=== PATIENT | female | born 1955 | race Caucasian/White ===

== ENCOUNTER → 2016-12-15 | Outpatient (CLI) | payer OTHER | LOC: MMPC 11:11 | PROVIDERS: ATTEND Internal Medicine | DX: E11.40 Type 2 diabetes mellitus with diabetic neuropathy, unspecified (principal); M54.2 Cervicalgia; G47.33 Obstructive sleep apnea (adult) (pediatric); F41.8 Other specified anxiety disorders; I10 Essential (primary) hypertension; E66.9 Obesity, unspecified | CPT/HCPCS: 99213; G0463 ==

== ENCOUNTER → 2017-01-12 | Outpatient (CLI) | payer OTHER ==
[2017-01-12 11:15] LABS: HEMOGLOBIN A1C 6.15 % (4.2-6.0); MEAN BLOOD GLUCOSE (CALC) 118.795 mg/dL
[2017-01-12 11:20] LABS: BILIRUBIN,TOTAL 0.7 mg/dL (0.3-1.2); CALCIUM 9.8 mg/dL (8.7-10.7); CREATININE 1.1 mg/dL (0.50-1.20); POTASSIUM 4.4 meq/L (3.8-5.2); TOTAL PROTEIN 7.6 g/dL (6.1-8.0)
== END ==
LOC: LAB 10:44
PROVIDERS: ATTEND Internal Medicine
DX: E11.40 Type 2 diabetes mellitus with diabetic neuropathy, unspecified (principal); I12.9 Hypertensive chronic kidney disease with stage 1 through stage 4 chronic kidney disease, or unspecified chronic kidney disease; N18.2 Chronic kidney disease, stage 2 (mild); R94.5 Abnormal results of liver function studies
CPT/HCPCS: 36415; 80048; 80076; 83036

== ENCOUNTER → 2017-01-18 | Outpatient (CLI) | payer OTHER ==
[2017-01-18 10:40] LABS: HEMATOCRIT 38.3 % (37.0-47.0); HEMOGLOBIN 12.7 g/dL (12.0-16.0); MEAN CORPUSCULAR HEMOGLOBIN 28.9 PG (27-31); MEAN CORPUSCULAR HGB CONC 33.2 g/dL (33-37); MEAN PLATELET VOLUME 11.9 FL (7.4-12.2); RDW COEFFICIENT OF VARIATION 14.7 % (11.5-14.5); WHITE BLOOD COUNT 7.01 10^3/uL (4.8-10.8)
[2017-01-18 10:42] LABS: BILIRUBIN,URINE NEGATIVE (NEG); CLARITY,URINE CLEAR (CLEAR); GLUCOSE, URINE (UA) NEGATIVE (NEG); LEUKOCYTE ESTERASE ,URINE TRACE (NEG); NITRATE,URINE NEGATIVE (NEG); OCCULT BLOOD,URINE NEGATIVE (NEG); PH,URINE 6.5 (5.0-8.5); PROTEIN,URINE NEGATIVE (NEG); UROBILINOGEN,URINE 0.2 mg/dL (0.2)
[2017-01-18 11:02] LABS: URINE SAMPLE TYPE VOIDED SPECIMEN
[2017-01-18 11:03] LABS: SQUAMOUS EPITHELIAL CELL,UR FEW
[2017-01-18 11:09] LABS: BAND NEUTROPHILS % 0 % (0-10); BASOPHILS % (MANUAL) 1 % (0-1); EOSINOPHILS % (MANUAL) 4 % (0-8); LYMPHOCYTES % (MANUAL) 25 % (10-50); METAMYELOCYTES % 0 %; MONOCYTES % (MANUAL) 5 % (0-12); MYELOCYTES % 0 %; NEUTROPHILS % (MANUAL) 65 % (50-80); PLATELET MORPHOLOGY COMMENT NORMAL MORPHOLOGY (NORM); PROMYELOCYTES % 0 %
--- NOTE | 2017-01-18 11:31 | EKG ---
[address] [place] [id number] Measurements Intervals [place] Rate: 57 P: 25 AL: 171 QRS: 93 QRSD: 111 T: 51 QT: 437 QTc: 432 Interpretive Statements SINUS RHYTHM BORDERLINE RIGHT AXIS DEVIATION MODERATE INTRAVENTRICULAR CONDUCTION DELAY Compared to ECG 10/06/2016 09:38:54 Intraventricular conduction delay now present Electronically Signed On 01-18-17 16:04:38 MDT by Kody Wiggins [id number]
--- NOTE | 2017-01-21 10:07 | HOLTER ---
[facility] Interpretive Statements This is a 48 hour Holter study done for "syncope." An accompanying diary lists over 50 "events" of almost all activities without symptoms but there were two listings of "feeling funny" at 9:02 AM day 1 and "tightness in chest" at 12:39 PM day 1 when the rhythm was normal sinus at normal rates with no ST depression. While normal sinus rhythm was the predominate rhythm there were 2 episodes of what appears to be V-tach lasting from 25 to 30 seconds with rates over 100 BPM (146 being the fastest) and one episode of 12 beat V-tach at 3:06 PM during which there were no reported symptoms. The total count of ventricular ectopics was 425 out of 183,903 beats and only 287 were singlets. There were 517 possible atrial ectopics with 111 being couplets and 6 runs with the longest being [address] and QTc analyses were WNL. IMPRESSION: Abnormal 48 hour Holter study with episodes of V-tach poorly correlated with symptoms. Consider Cardiology review. Electronically Signed On 01-21-17 11:00:20 MDT by Alan Reyes MD [id number]
== END ==
LOC: MOB LAB 09:39
PROVIDERS: ATTEND Internal Medicine
DX: R55 Syncope and collapse (principal); I10 Essential (primary) hypertension; I45.89 Other specified conduction disorders
CPT/HCPCS: 36415; 81001; 85007; 93005; 93010; 93225; 93226; 93227

== ENCOUNTER 2017-03-11 09:30 | Emergency (ER) | payer OTHER ==
[2017-03-11] MEDS ORDERED: MECLIZINE 25 MG CHEWABLE TABLET PO ONE (10:02)
[2017-03-11] MEDS ORDERED: ONDANSETRON 4 MG/2 ML VIAL IVP ONE (10:02)
[2017-03-11] MEDS ORDERED: Sodium Chloride 0.9% 1,000 ML PRIMARY IV ONE (10:02)
[2017-03-11] MEDS ORDERED: LORazepam 2 MG/1 ML VIAL IVP ONE (10:04)
--- NOTE | 2017-03-11 10:14 | PDOC ---
Syncope/Near-Syncope HPI - General Chief Complaint: Syncope / Near-Syncope Stated Complaint: SYNCOPAL EPISODES x2 MONTHS/AGAIN THIS AM AT PT Date Seen by Provider: 03/11/17 Time Seen by Provider: 10:05 Source: POSITIVE: Patient, Spouse Exam Limitations: POSITIVE: No limitations Nurse's Notes Reviewed & Considered: Yes - History of Present Illness Initial Comments: Patient was brought to the emergency room from physical therapy after experiencing a syncopal episode versus seizure. Patient was in physical therapy and a hot towel had been draped over her neck and shoulders, the patient was stood up, and developed significant dizziness, odd affect, and shaking. Patient has had 2 months of intermittent syncopal episodes and dizziness that have no apparent Colles. These episodes have occurred when the patient is lying down, when she is standing at the sink washing dishes, and when she is up moving around. She was evaluated by cardiology here in [place], sent to [facility] where she was hospitalized and worked up by cardiology there. Workup included cardiac catheter which has been reported by the patient is normal. She has had no neurological workup of which I am aware of at this time. Patient has history of migraine headaches, no chest pain, no shortness of breath, no nausea vomiting or diarrhea, no fever or chills, but she does have hot flashes and sweats. Body Location Affected: REPORTS: Head Timing: REPORTS: Abrupt Duration: 1/2 hour Severity: Severe Quality: REPORTS: Other (Dizziness) Witnessed? (By Whom:): Yes (witnessed in physical therapy) Context: REPORTS: Sitting, Standing, Activity Symptoms Prior to Episode: REPORTS: None Character of Event(s): REPORTS: Became Unresponsive, Almost Passed Out, Confuse After Event Associated Symptoms: REPORTS: Lightheadedness, Dizziness Recently seen/treated/hospitalized: Yes Any Prior Injuries Related to Current Complaint?: No - Patient Home Medications Home Medications: Home Medications Oxygen (O2) 2 unit INH HS #2 unit 01/17/14 Amlodipine Besylate [Norvasc] 1 tab PO DAILY #90 tab 06/09/16 Atorvastatin Calcium [Lipitor] 1 tab PO DAILY #90 tab 06/09/16 Gabapentin 1 cap PO BID #60 cap 08/25/16 Hydrochlorothiazide 1 tab-cap PO DAILY #90 tab 09/22/16 Metformin HCl 2 tab-cap PO BID #360 tab 09/22/16 Omeprazole 1 tab-cap PO DAILY #90 cap 09/22/16 Losartan Potassium 1 tab PO QD #90 tab 10/12/16 Citalopram Hydrobromide [Citalopram Hbr] 1 tab PO DAILY #90 tab 12/15/16 Oxycodone HCl 1 cap PO Q4-6H PRN #30 cap 12/15/16 Pregabalin [Lyrica] 1 tab-cap PO BID #180 tab-cap 01/25/17 - Patient Allergies Allergies/Adverse Reactions: Allergies Allergy/AdvReac Type Severity Reaction Status Date / Time morphine AdvReac DYSPHORIA Verified 03/11/17 09:56 Past Medical History - heen HEENT History: Denies History Cardiovascular History: Hypertension, CAD Additional Cardiovasular History: PATIENT STATES HAS A "LARGE THICK HEART" Respiratory History: Shortness of Breath, Sleep Apnea, Home CPAP Use Additional Respiratory History: TOLD TO BRING CPAP TO HOSPITAL Gastrointestinal History: GERD Genitourinary History: Incontinence Endocrine History: Type 2 Diabetes (oral) Additional Endocrine History: TAKING METFORMIN FOR 10 YEARS Musculoskeletal History: Arthritis, Gout, Fibromyalgia Prosthesis or Implant: No Additional Musculoskeletal History: GOUT FLARES UP IN BILATERAL FEET NO FLARE UP IN QUITE A WHILE Neurological History: Frequent Headaches Blood Disorders: Denies History Additional Blood Disorders History: BRUISES VERY EASILY Psychiatric History: Depression Additional Psychiatric History: TREATING WITH CITALOPRAM History of Sexually Transmitted Diseases: No Cancer History: Denies History History of MDRO: No History of Other Communicable Diseases: Yes (SHINGLES IN 2009) Alcohol Use: Occasionally Substance Use Type: None Previous Surgical History: Yes Type / Date of Surgery: EGD/COLONOSCOPY/APPY/ KORIN/ HYST/ INCISIONAL HERNIA X 2 / R KNEE SCOPE/ LAPAROSCOPY/ RIGHT ACHILLES TENDON REPAIR X3/ TUBAL/ UNILAT OOPHORECTOMY Anesthesia Reactions: No Malignant Hyperthermia: No Significant Family History: Cancer, Diabetes, Hypertension ROS - Limitations ROS Limitations: No Limitations Constitution: REPORTS: Diaphoresis Cardiovascular: REPORTS: Denies Cardiac Symptoms Respiratory: REPORTS: Denies Resp Symptoms Neurological: REPORTS: Dizziness, Fainting Gastrointestinal: REPORTS: Denies GI Symptoms Endocrine: REPORTS: Denies Symptoms Musculoskeletal: REPORTS: Denies MS Symptoms Genitourinary: REPORTS: Denies Symptoms Eyes: REPORTS: Denies Symptoms ENT: REPORTS: Denies Symptoms Skin: REPORTS: Denies Skin Symptoms Lympathic: REPORTS: Denies Lympathic Symptoms Immunologic: POSITIVE: Denies Symptoms Psychiatric: POSITIVE: Confusion Syncope / Near-Syncope Exam - General Appearance General Appearance: POSITIVE: Cooperative, No Evidence of Trauma, Moderate Distress - HEENT HEENT: POSITIVE: Head Inspection Nml, Eyes Inspection Nml, Ears Inspection Nml, Nose Inspection Nml, Oral/Dental Inspect. Nml, Pharynx Inspect. Nml, PERRL, EOMI - Pupil Size Pupil Size: 3 mm: Bilateral - Neck / Back Neck/Back: POSITIVE: Supple, Non-Tender - Respiratory Respiratory: POSITIVE: No Respiratoy Distress, Breath Sounds Normal, No Pleuritic Chest Pain - Cardiovascular Cardiovascular: POSITIVE: Heart Sounds Normal, Bradycardia - Abdomen Abdomen: Soft: (All Quadrants), Normal Bowel Sounds: (All Quadrants), Denies Tenderness: (All Quadrants) - Skin Skin: POSITIVE: Intact, Normal For Race, Warm, Dry, No Rash - Extremities Extremity: Non-Tender: (All Extremities), Normal ROM: (All Extremities), Normal Inspection: (All Extremities), Pelvis Stable: (All Extremities) - Neuro / Psych Higher Functions: POSITIVE: Oriented to Person, Oriented to Place, Oriented to Time, Normal Speech, Slow Response to Command Cranial Nerves: POSITIVE: Normal As Tested, No Evidence of Acute CVA Cerebellar: POSITIVE: Normal As Tested Sensorimotor: POSITIVE: No Motor Deficits, No Sensory Deficits, Reflexes Normal , Symmetrical Reflexes: Patellar (R): 3+, Patellar (L): 3+, Radial (R): 3+, Radial (L): 3+ Syncope/Near-Syncope Progress - Results Reviewed by me Xrays/CTs/US Reviewed by me: Yes Discussed with Radiologist: Yes Lab Results Reviewed: Yes Lab Results:: Laboratory Results 03/11/17 03/11/17 Range/Units 10:10 11:21 WBC 5.90 (4.8-10.8) 10^3/uL RBC 4.43 (4.20-5.40) 10^6/uL Hgb 12.5 (12.0-16.0) g/dL Hct 39.0 (37.0-47.0) % MCV 88.0 (81-99) FL MCH 28.2 (27-31) PG MCHC 32.1 L (33-37) g/dL RDW Std Deviation 46.2 (39-50) fL RDW Coeff of Lisa 14.5 (11.5-14.5) % Plt Count 252 (140-350) 10*3/uL MPV 11.7 (7.4-12.2) FL Immature Gran % (Auto) 0.2 (0-5) % Neut % (Auto) 61.1 (50-80) % Lymph % (Auto) 25.3 (10-50) % [place] % (Auto) 10.2 (5-15) % Eos % (Auto) 2.7 (0-8) % Baso % (Auto) 0.5 (0-1) % Immature Gran # (Auto) 0.01 10*3/UL Neut # (Auto) 3.61 10*3/UL Lymph # (Auto) 1.49 10*3/uL [place] # (Auto) 0.60 (0.3-0.8) 10*3/UL Eos # (Auto) 0.16 10*3/UL Baso # (Auto) 0.03 10*3/UL WBC Morphology Comment Normal morphology (NORM) Plt Morphology Comment Normal morphology (NORM) RBC Morph Comment Normal morphology (NORM) Sodium 140 (135-145) meq/L Potassium 4.5 (3.8-5.2) meq/L Chloride 105 (98-112) meq/L Carbon Dioxide 23 (23-33) meq/L Anion Gap 12 (5-20) BUN 29 H (7-22) mg/dL Creatinine 1.0 (0.50-1.20) mg/dL Estimated GFR 56 (>60 ml/min/1.73m(2)) BUN/Creatinine Ratio 29.00 H (6-20) Glucose 116 H (78-110) mg/dL Calculated Osmolality 296.0 H (267-292) mOsm/kg Calcium 9.6 (8.7-10.7) mg/dL Magnesium 2.0 (1.6-2.4) mg/dL Total Bilirubin 0.7 (0.3-1.2) mg/dL AST 38 (8-39) IU/L ALT 53 H (9-52) IU/L Alkaline Phosphatase 66 (38-126) IU/L C-Reactive Protein < 0.5 (0.0-0.9) mg/dL NT-Pro-B Natriuret Pep 127 H (0-125) PG/ML Total Protein 7.5 (6.1-8.0) g/dL Albumin 4.1 (3.5-4.8) g/dL Globulin 3.4 (2.50-4.10) g/dL Albumin/Globulin Ratio 1.20 L (1.3-2.0) mg/g TSH 1.89 (0.2700-4.2000) uIU/mL Free T4 0.99 (0.93-1.71) ng/dL Ur Collection Type Clean catch urine Urine Color Yellow Urine Clarity Clear (CLEAR) Urine pH 5.5 (5.0-8.5) Ur Specific [place] 1.010 (1.005-1.030) Urine Protein Negative (NEG) mg/dl Urine Glucose (UA) Negative (NEG) mg/dL Urine Ketones Negative (NEG) Urine Occult Blood Negative (NEG) Urine Nitrate Negative (NEG) Urine Bilirubin Negative (NEG) Urine Urobilinogen 0.2 (0.2) EU/dL Ur Leukocyte Esterase Small (NEG) Urine RBC None (NONE) /hpf Urine WBC None (NONE) Ur Squamous Epith Cells Few (NONE) Ur Renal Epithelial Cell None (NONE) Urine Crystals None Urine Bacteria Rare (NONE) Urine Casts None (NONE) Urine Mucus Few (NONE) Urine Trichomonas None (NONE) Urine Yeast None (NONE) Ur Culture Indicated? Culture not set EKG Interpreted/Reviewed By Me:: Yes EKG Interpretation:: POSITIVE: Abnormal EKG (Sinus bradycardia) - Patient's Progress Pain Medication Addressed: POSITIVE: Yes Re-examine Time: 13:40 Status: POSITIVE: Improved MDM / ED Course: Patient was evaluated, IV started, blood drawn and sent to the lab for studies, radiographic examinations and EKG obtained. Findings: My review of EKG shows sinus bradycardia. MRI shows no acute intracranial abnormalities. CBC shows to be unremarkable. Comprehensive metabolic panel shows normal creatinine, elevated glucose. Urinalysis is negative. Thyroid is within normal limits. Assessment: Syncope. Possible causes include neurogenic, and cardiogenic. With her bradycardia the cardiogenic what appeared to the more likely. Plan: Discharge home. Follow-up with your primary care physician. CVA/Syncope Quality Measure Initiative: POSITIVE: EKG, NIH Stroke Scale (5) - Consult Counseled: POSITIVE: Patient, Family, RE: Lab Results, RE: Radiology Results, RE : DX, RE: Need for F/U Patient Care Time - Estimated PCT Patient Care Time (In Minutes): 45 Vital Signs - Recent Vital Signs Vital Signs: Vital Signs (Last 8 hours) Temp Pulse Pulse Pulse Pulse Pulse Resp 03/11/17 10:31 58 L 03/11/17 09:45 62 67 68 03/11/17 09:30 97.2 F 62 15 BP BP BP BP Pulse Ox 03/11/17 10:31 03/11/17 09:45 153/78 130/96 147/89 03/11/17 09:30 144/94 97 - VS Reviewed Vital Signs Reviewed: Yes Discharge Clinical Impression: Syncope Discharge Disposition: Discharged to Home Condition: Stable Patient Instructions Given at Discharge: Syncope (ED)
[2017-03-11 10:19] LABS: BASOPHILS # (AUTO) 0.03 10*3/UL; BASOPHILS % (AUTO) 0.5 % (0-1); EOSINOPHILS # (AUTO) 0.16 10*3/UL; EOSINOPHILS % (AUTO) 2.7 % (0-8); HEMOGLOBIN 12.5 g/dL (12.0-16.0); LYMPHOCYTES # (AUTO) 1.49 10*3/uL; MEAN CORPUSCULAR HEMOGLOBIN 28.2 PG (27-31); MEAN CORPUSCULAR HGB CONC 32.1 g/dL (33-37); MEAN PLATELET VOLUME 11.7 FL (7.4-12.2); MONOCYTES % (AUTO) 10.2 % (5-15); NEUTROPHILS # (AUTO) 3.61 10*3/UL; NEUTROPHILS % (AUTO) 61.1 % (50-80); RED BLOOD COUNT 4.43 10^6/uL (4.20-5.40)
[2017-03-11 10:23] LABS: PLATELET MORPHOLOGY COMMENT NORMAL MORPHOLOGY (NORM); RBC MORPHOLOGY COMMENT NORMAL MORPHOLOGY (NORM); WBC MORPHOLOGY COMMENT NORMAL MORPHOLOGY (NORM)
[2017-03-11 10:31] LABS: BLOOD UREA NITROGEN 29 mg/dL (7-22); CALCIUM 9.6 mg/dL (8.7-10.7); EST GLOMERULAR FILTRATION 56 (>60 ml/min/1.73m(2)); SERUM ALBUMIN 4.1 g/dL (3.5-4.8)
--- NOTE | 2017-03-11 10:34 | EKG ---
[address] [address] Measurements Intervals [place] Rate: 58 P: 41 IL: 181 QRS: -1 QRSD: 113 T: 30 QT: 449 QTc: 445 Interpretive Statements SINUS BRADYCARDIA MODERATE INTRAVENTRICULAR CONDUCTION DELAY [110+ ms QRS DURATION] Compared to ECG 01/18/2017 09:59:43 Minimal change Electronically Signed On 03-11-17 12:20:18 MDT by Alan Reyes MD [id number]
[2017-03-11 10:38] LABS: C-REACTIVE PROTEIN < 0.5 mg/dL (0.0-0.9)
[2017-03-11 10:43] VITALS: RESP 15; TEMP 97.2
[2017-03-11 11:03] LABS: FREE T4 (FREE THYROXINE) 0.99 ng/dL (0.93-1.71)
[2017-03-11 11:27] LABS: BILIRUBIN,URINE NEGATIVE (NEG); COLOR,URINE YELLOW; GLUCOSE, URINE (UA) NEGATIVE (NEG); NITRATE,URINE NEGATIVE (NEG); OCCULT BLOOD,URINE NEGATIVE (NEG); PH,URINE 5.5 (5.0-8.5); PROTEIN,URINE NEGATIVE (NEG); UROBILINOGEN,URINE 0.2 EU/dL (0.2)
[2017-03-11 11:42] LABS: CLARITY,URINE CLEAR (CLEAR)
[2017-03-11 11:43] LABS: URINE SAMPLE TYPE CLEAN CATCH URINE
[2017-03-11 11:44] LABS: BACTERIA,URINE RARE; SQUAMOUS EPITHELIAL CELL,UR FEW
--- NOTE | 2017-03-11 13:13 | DI ---
MRI BRAIN W/WO CN,03/11/2017 10:02 AM: Clinical History: Dizziness and possible seizure. Previous Exam: None at this facility. Findings: Multiplanar MR images are obtained through the brain both before and after the intravenous administra tion of contrast (20 mL of ProHance), and demonstrate normal midline structures. Parasellar region is unremarkable. Intraorbital structures are also unremarkable. The posterior fossa is within normal limits. The upper cervical spine is also unremarkable. There is no increased FLAIR signal and there is no abnormally restricted diffusion. The internal auditory canals are not well evaluated, but are grossly normal. The major vascular flow voids are unremarkable. There is no abnormal enhancement. Impression: Normal MRI brain with and without contrast.
[2017-03-11] MEDS ORDERED: diphenhydrAMINE 50 MG/1 ML VIAL IVP ONE (13:34)
[2017-03-11] MEDS ORDERED: Prochlorperazine Edisylate Inj 10mg/2ml vial IVP PRN (13:34)
[2017-03-11] MEDS ORDERED: DEXAMETHASONE PF 10 MG/1 ML VIAL IV ONE (13:34)
[2017-03-11] MEDS ORDERED: KETOROLAC 15 MG/1 ML VIAL IVP ONE (13:34)
== END 2017-03-11 14:24 | disposition home or self-care (01) ==
LOC: ER 09:30
DX: R55 Syncope and collapse (principal); R42 Dizziness and giddiness; E11.9 Type 2 diabetes mellitus without complications; R00.1 Bradycardia, unspecified
CPT/HCPCS: 70553; 80053; 81001; 81003; 83735; 83880; 84439; 84443; 85025; 86140; 93005; 93010; 96374; 96375; 99284 ×2; J1200; J1100; J1885; J2405; J7030

== ENCOUNTER → 2017-03-23 | Outpatient (CLI) | payer OTHER | LOC: MMPC 11:11 | PROVIDERS: ATTEND Internal Medicine | DX: R42 Dizziness and giddiness (principal); R55 Syncope and collapse | CPT/HCPCS: 99213; G0463 ==

== ENCOUNTER → 2017-04-14 | Outpatient (CLI) | payer OTHER | LOC: MMPC 11:11 | PROVIDERS: ATTEND Internal Medicine | DX: G47.33 Obstructive sleep apnea (adult) (pediatric) (principal); N18.2 Chronic kidney disease, stage 2 (mild); K21.9 Gastro-esophageal reflux disease without esophagitis; I67.1 Cerebral aneurysm, nonruptured; R40.20 Unspecified coma; E66.9 Obesity, unspecified; F41.8 Other specified anxiety disorders | CPT/HCPCS: 99213; G0463 ==

== ENCOUNTER → 2017-06-01 | Outpatient (CLI) | payer OTHER ==
[2017-06-01 12:31] LABS: BUN/CREATININE RATIO 19.09 (6-20); CALCIUM 9.8 mg/dL (8.7-10.7); SERUM ALBUMIN 4.2 g/dL (3.5-4.8)
[2017-06-01 12:44] LABS: HEMOGLOBIN A1C 6.44 % (4.2-6.0)
[2017-06-01 13:30] LABS: ERYTHROCYTE SEDIMENTATION RATE 9 MM/HR (0-20); HEMATOCRIT 39.3 % (37.0-47.0); HEMOGLOBIN 12.7 g/dL (12.0-16.0); RED BLOOD COUNT 4.53 10^6/uL (4.20-5.40)
[2017-06-01 13:31] LABS: BASOPHILS % (AUTO) 1.1 % (0-1); EOSINOPHILS % (AUTO) 2.2 % (0-8); LYMPHOCYTES # (AUTO) 1.69 10*3/uL; MEAN CORPUSCULAR HGB CONC 32.3 g/dL (33-37); MEAN CORPUSCULAR VOLUME 86.8 FL (81-99); MEAN PLATELET VOLUME 12.2 FL (7.4-12.2); MONOCYTES % (AUTO) 9.5 % (5-15); NEUTROPHILS # (AUTO) 3.08 10*3/UL; NEUTROPHILS % (AUTO) 56.2 % (50-80)
[2017-06-01 13:32] LABS: BASOPHILS # (AUTO) 0.06 10*3/UL; EOSINOPHILS # (AUTO) 0.12 10*3/UL; MONOCYTES # (AUTO) 0.52 10*3/UL (0.3-0.8); PLATELET MORPHOLOGY COMMENT NORMAL MORPHOLOGY (NORM); RBC MORPHOLOGY COMMENT NORMAL MORPHOLOGY (NORM); WBC MORPHOLOGY COMMENT NORMAL MORPHOLOGY (NORM)
== END ==
LOC: MOB LAB 10:14
PROVIDERS: ATTEND Internal Medicine
DX: R55 Syncope and collapse (principal); R42 Dizziness and giddiness; E11.9 Type 2 diabetes mellitus without complications; R51 Headache; I10 Essential (primary) hypertension; E78.5 Hyperlipidemia, unspecified; E66.9 Obesity, unspecified
CPT/HCPCS: 36415; 80053; 83036; 84443; 85025; 85652

== ENCOUNTER 2018-02-28 11:00 | Inpatient (IN) ==
[~2018-02-28 11:00] MED LIST: LIDOCAINE W/ SODIUM BICARB 0.5 ML SYR ONE; LIDOCAINE W/ SODIUM BICARB 0.5 ML SYR SUBD ONE; Lactated Ringers 1,000 ML PRIMARY IV ONE; ceFAZolin Inj 2gm (Premix) 2 GM/50 ML BAG IV ONE
[2018-02-28] MEDS: Lactated Ringers 1,000 ML PRIMARY IV SCH ×2 (11:13→18:30)
[2018-02-28 11:20] LABS: BILIRUBIN,URINE NEGATIVE (NEG); CLARITY,URINE CLEAR (CLEAR); COLOR,URINE YELLOW (Y); GLUCOSE, URINE (UA) NEGATIVE (NEG); OCCULT BLOOD,URINE NEGATIVE (NEG); PROTEIN,URINE NEGATIVE (NEG); URINE SAMPLE TYPE CLEAN CATCH URINE
[2018-02-28] MEDS ORDERED: LIDOCAINE 2%/ EPI 1:200,000 - 20 ML VIAL ONE (11:21)
[2018-02-28] MEDS ORDERED: fentaNYL Inj 250 MCG/5 ML VIAL ONE (11:21)
[2018-02-28] MEDS ORDERED: BUPivacaine Inj 0.5% PF (5mg/ml) 10ml vial ONE (11:21)
[2018-02-28] MEDS ORDERED: MIDAZOLAM 5 MG/1 ML ONE (11:21)
[2018-02-28] MEDS ORDERED: Vancomycin Inj 1gm vial ONE (12:22)
[2018-02-28] MEDS ORDERED: BUPivacaine Liposome/PF (Exparel) Inj 20ml vial INFIL ONE (12:22)
[2018-02-28] MEDS ORDERED: BUPivacaine Inj 0.25% PF - 10ml vial ONE (12:22)
[2018-02-28] MEDS ORDERED: PROPOFOL 10 MG/1 ML (200 MG/20 ML) VIAL IV ONE (12:47)
[2018-02-28] MEDS ORDERED: LIDOCAINE MPF 2% - 5 ML (20 MG/1 ML) ONE (12:47)
[2018-02-28] MEDS ORDERED: SODIUM CHLORIDE 0.9% IRRIG ONE (13:00)
[2018-02-28] MEDS ORDERED: TRANEXAMIC ACID IRRIG ONE (13:00)
[2018-02-28] MEDS ORDERED: HYDROmorphone 2 MG/1 ML ONE ×2 (13:42)
[2018-02-28] MEDS ORDERED: KETAMINE 100 MG/1 ML - 5 ML ONE (13:44)
[2018-02-28] MEDS ORDERED: ePHEDrine Inj 50 MG/ML AMP ONE (13:52)
[2018-02-28] MEDS ORDERED: ONDANSETRON 4 MG/2 ML VIAL ONE (14:45)
[2018-02-28] MEDS ORDERED: KETOROLAC 30 MG/1 ML VIAL ONE (14:45)
[2018-02-28] MEDS ORDERED: Lactated Ringers 1,000 ML PRIMARY IV ONE ×2 (14:58→18:35)
[2018-02-28] MEDS ORDERED: LIDOCAINE W/ SODIUM BICARB 0.5 ML SYR SUBD PRN (16:33)
[2018-02-28] MEDS ORDERED: fentaNYL Inj 100 MCG/2 ML VIAL IVP PRN (16:33)
[2018-02-28] MEDS ORDERED: NORMAL SALINE 10 ML SYRINGE FLUSH IVP PRN (16:33)
[2018-02-28] MEDS ORDERED: HYDROmorphone 2 MG/1 ML IVP PRN (16:33)
--- NOTE | 2018-02-28 16:46 | CRNA.PROGR ---
Anesthesia Recovery Phase I - Post Anesthesia Evaluation Patient's Condition on Arrival in Phase I: Stable Pain Level: 1
--- NOTE | 2018-02-28 16:46 | CRNA.PROCE ---
Nerve Block Documentation - - Safety Measures: Time Out Taken, Site Verified - - Type of Nerve Block Used: Right Adductor Canal Nerve Block Position for Nerve Block: Supine Moniters Used During Block: EKG, SPO2, NIBP Oxygen Supplemented: Yes Sedation Used - Enter Amount in Comment Field [ANES.SEDAT]: Midazolam (mg): Yes (2mg iv), Fentanyl (mcg): Yes (50mcg iv) Skin Prep Used: ChloroPrep Technique: Ultrasound Nerve Block Needle Used: EchoMeilele 100 mm Local Anesthetic - Enter Amt in Comment Field [ANES.LOCNB]: 0.5 % Bupivacaine Plain (mL): Yes (20ml), 2 % Xylocaine with Epinephrine 1:200,000 (mL): Yes (20ml ) - - PreOp Block : Time In: 11:50 PreOp Block : Time Out: 12:05 Anesthesia Time - Other Weight: 113.398 kg Height: 5 ft 11 in Body Mass Index (BMI): 34.8
--- NOTE | 2018-02-28 16:47 | CRNA.PROGR ---
Anesthesia Time - - Start date: 02/28/18 End date: 02/28/18 - Procedure/Recovery Time Anesthesia : Time In: 13:11 Anesthesia : Time Out: 16:04 Anesthesia : Total Time: 173 - Block Time PreOp Block : Time In: 11:50 PreOp Block : Time Out: 12:05 PreOp Block : Total Time: 15 - Total Anesthesia Time Total Anesthesia Time (minutes): 188 - Other Weight: 113.398 kg Height: 5 ft 11 in Body Mass Index (BMI): 34.8 Physical Status: P2 Anesthesia Type: General Anesthesia : LMA PostOp Pain Management: Femoral (Single Injection) (Right Adductor canal)
--- NOTE | 2018-02-28 17:24 | DI ---
XR KNEE 1 OR 2 VWS,02/28/2018 3:30 PM: Clinical History: Status post right total knee arthroplasty. Previous Exam: January 2018 Findings: AP and lateral views of the right knee are obtained, and demonstrate postsurgical changes consistent with a right total knee arthroplasty. There is subcutaneous free air noted throughout. There is no ev idence of hardware loosening or fracture. Impression: Status post right total knee arthroplasty.
--- NOTE | 2018-02-28 17:32 | CONSULT ---
Consult Note - Consult Primary Care Provider: Claire Prabhakar MD HPI - History of Present Illness History of Present Illness: This very nice 62-year-old female who is status post total knee replacement doing well postop was consulted for medical management and specifically diabetes hypertension. She has no complaints at present time no chest pain nausea or vomiting Past Medical History Medical History: Fibromyalgia, diabetes, hypertension, bradycardia, sleep apnea , diabetic neuropathy, obesity, depression Surgical History: Status post bilateral cataract extraction (Acute). History of esophagogastroduodenoscopy. History of gastrointestinal surgery. History of gynecological procedure. History of musculoskeletal system surgery (~2016). History of unilateral oophorectomy. Incisional hernia repair. Rt achilles tendon repair (03/20/14). Status post appendectomy. Status post cholecystectomy. Status post colonoscopy. Status post hysterectomy. Status post knee surgery. Status post tubal ligation Pertinent Family History: No premature coronary artery disease Tobacco Use: Never Smoker In the Past 12 Months, Have Used or Abuse Any of the Following Substance: None Review of Systems - Review of Systems All Systems: Reviewed & No Additional Complaints Except as Stated - Respiratory Respiratory: DENIES: Negative System Review, Cough, Sputum, Dyspnea At Rest, Dyspnea with Exertion, Pleuritic Pain, Hemoptysis, Wheezing, Other, See HPI - Cardiovascular Cardiovascular: DENIES: Negative System Review, Chest Pain, Edema, Syncope, Palpitations, Orthopnea, Paroxysmal Nocturnal Dyspnea, Other, See HPI - Gastrointestinal Gastrointestinal / Abdominal: DENIES: Negative System Review, Nausea, Vomiting, Diarrhea, Constipation, Abdominal Pain, Bloody Stool, Poor Appetite, Heartburn, Regurgitation, Bloating, Lactose Intolerance, Melena, Bright Red Blood per Rectum, Other, See HPI Medication / Allergies Home Medications: Home Medications 3 Medication Instructions Recorded Confirmed Type Oxygen (O2) 2 unit INH HS #2 unit 01/17/14 02/28/18 History atorvastatin 40 mg tablet 40 mg PO DAILY #90 tab 07/08/17 02/28/18 Clinic amlodipine 10 mg tablet 10 mg PO DAILY #90 tab 08/10/17 02/28/18 Rx hydrochlorothiazide 25 mg tablet 25 mg PO DAILY #90 tab 08/10/17 02/28/18 Rx naproxen 250 mg tablet 250 mg PO BID #180 tab 08/30/17 02/28/18 Rx losartan 25 mg tablet 25 mg PO QD #90 tab 09/27/17 02/28/18 Rx metformin 500 mg tablet 1,000 mg PO BID #360 tab 12/28/17 02/28/18 Rx onabotulinumtoxinA 200 unit 200 unit IM ONCE PRN 12/28/17 02/28/18 History solution for injection pregabalin 200 mg capsule 200 mg PO BID #180 tab-cap 02/07/18 02/28/18 Rx diclofenac sodium 50 mg 50 mg PO BID PRN 02/21/18 02/28/18 History tablet,delayed release citalopram 40 mg tablet 40 mg PO DAILY #90 tab 02/23/18 02/28/18 Rx omeprazole 40 mg capsule,delayed 40 mg PO DAILY #90 cap 02/23/18 02/28/18 Rx release Allergies/Adverse Reactions: Allergies 3 Allergy/AdvReac Type Severity Reaction Status Date / Time morphine AdvReac DYSPHORIA Verified 02/28/18 11:18 oxycodone AdvReac NOT Verified 02/28/18 11:18 APPLICABLE Exam - Vitals Vital Signs: Vital Signs Temperature 97.8 F Pulse Rate [Pulse Oximeter] 60 Pulse Rate 69 Respiratory Rate 18 Blood Pressure [Left Arm] 129/78 Blood Pressure 127/77 Pulse Ox 98 Oxygen Flow Rate 3 Oxygen Delivery Method Nasal Cannula Height 5 ft 11 in Weight 250 lb - General General Appearance: No Acute Distress, Cooperative - Head Head Exam: Normal Inspection, Normocephalic, Atraumatic - Respiratory Respiratory Exam: POSITIVE: Clear to Auscultation - Bilaterally, Breathing Non Labored, Normal To Percussion, Normal to Percussion and Palpation - Cardiovascular Cardiovascular Exam: POSITIVE: RRR, No Murmur, No Clicks, No Gallops, No Rubs, PMI Non-Displaced - GI/Abdominal GI/Abdominal Exam: POSITIVE: Normal Bowel Sounds, Non Tender, Non Distended, Soft, No Masses, No Hepatomegaly, No Splenomegaly, No Organomegaly - Extremities Extremities Exam: POSITIVE: Normal Inspection, Full ROM, Normal Capillary Refill , No Clubbing Present, No Edema Present, No Cyanosis Present Assessment and Plan - Patient Problems (1) Total knee replacement status Current Visit: Yes Status: Acute Comment: Defer to orthopedic surgery for anticoagulation and pt ot orders Code(s): Z96.659 - Presence of unspecified artificial knee joint (2) Chronic kidney disease, stage 2 (mild) Current Visit: No Status: Chronic Priority: Low Onset Date: 04/21/16 Comment: stable at present time Code(s): N18.2 - Chronic kidney disease, stage 2 (mild) (3) Controlled type 2 diabetes mellitus without complication, without long-term current use of insulin Current Visit: No Status: Chronic Onset Date: 06/01/17 Comment: hold metformin start slididng scale Code(s): E11.9 - Type 2 diabetes mellitus without complications (4) Depression with anxiety Current Visit: No Status: Chronic Onset Date: 06/09/16 Comment: cont current meds Code(s): F41.8 - Other specified anxiety disorders (5) Diabetic neuropathy Current Visit: No Status: Chronic Code(s): E11.40 - Type 2 diabetes mellitus with diabetic neuropathy, unspecified (6) Essential hypertension Current Visit: No Status: Chronic Onset Date: 10/07/15 Comment: stable Code(s): I10 - Essential (primary) hypertension (7) Gastroesophageal reflux disease Current Visit: No Status: Chronic Onset Date: 06/09/16 Comment: ppi Code(s): K21.9 - Gastro-esophageal reflux disease without esophagitis
[2018-02-28] MEDS ORDERED: DEXTROSE 31 GM GEL PO PRN (17:33)
[2018-02-28] MEDS ORDERED: Insulin Sliding Scale Protocol SUBCUT PRN (17:33)
[2018-02-28] MEDS ORDERED: Glucagon Inj Vial 1 MG/ML VIAL IM PRN (17:33)
[2018-02-28] MEDS ORDERED: DEXTROSE 50%-WATER SYRINGE 50 ML SYRINGE IVP PRN (17:33)
[2018-02-28] MEDS ORDERED: DICLOFENAC SODIUM 50 MG PO PRN (17:35)
[2018-02-28] MEDS ORDERED: CELECOXIB 200 MG CAPSULE PO PRN (17:36)
[2018-02-28] MEDS ORDERED: ONDANSETRON 4 MG/2 ML VIAL IVP PRN (17:36)
[2018-02-28] MEDS ORDERED: MORPHINE SULFATE 2 MG/1 ML IVP PRN (17:44)
[2018-02-28] MEDS ORDERED: MORPHINE SULFATE 10 MG/1 ML IV PRN (18:05)
[2018-02-28] MEDS ORDERED: MORPHINE SULFATE 4 MG/1 ML IV PRN (18:05)
[2018-02-28] MEDS ORDERED: MORPHINE SULFATE 2 MG/1 ML IV PRN (18:05)
[2018-02-28] MEDS: oxyCODONE-ACETAMINOPHEN 5-325 TAB PO PRN ×2 (18:30→22:44)
[2018-02-28] MEDS ORDERED: NAPROXEN 250 MG PO SCH (21:00)
[2018-02-28] MEDS ORDERED: PREGABALIN 100 MG CAPSULE PO ONE (22:38)
[2018-02-28] MEDS ORDERED: DOCUSATE 100 MG CAPSULE ONE (22:38)
[2018-02-28] MEDS: ceFAZolin Inj 2gm (Premix) 2 GM/50 ML BAG IV SCH (22:44)
[2018-02-28] MEDS: DOCUSATE 100 MG CAPSULE PO SCH (22:44)
[2018-02-28] MEDS: ATORVASTATIN 40 MG TABLET PO SCH (22:45)
[2018-02-28] MEDS: PREGABALIN 100 MG CAPSULE PO SCH (22:45)
[2018-02-28] MEDS: Insulin Lispro Flexpen 300 UNIT/3 ML INSULN.PEN SUBCUT SCH (22:48)
[2018-03-01] MEDS ORDERED: Lactated Ringers 1,000 ML PRIMARY IV ONE (03:27)
[2018-03-01] MEDS: oxyCODONE-ACETAMINOPHEN 5-325 TAB PO PRN ×4 (03:29→22:19)
[2018-03-01] MEDS: Lactated Ringers 1,000 ML PRIMARY IV SCH ×3 (03:30→11:31)
[2018-03-01] MEDS: KETOROLAC 30 MG/1 ML VIAL IVP PRN ×3 (03:33→17:30)
[2018-03-01 05:04] LABS: Hematocrit [HCT] 31.6 % (37.0-47.0); Hemoglobin [HGB] 10.1 g/dL (12.0-16.0); MEAN CORPUSCULAR HEMOGLOBIN 28.7 PG (27-31); MEAN CORPUSCULAR VOLUME 89.8 FL (81-99); MEAN PLATELET VOLUME 11.8 FL (7.4-12.2); RED BLOOD COUNT 3.52 10^6/uL (4.20-5.40)
[2018-03-01 05:10] LABS: BLOOD UREA NITROGEN 19 mg/dL (7-22); BUN/CREATININE RATIO 21.11 (6-20)
[2018-03-01 05:35] LABS: PLATELET MORPHOLOGY COMMENT NORMAL MORPHOLOGY (NORM); RBC MORPHOLOGY COMMENT SEE COMMENTS (NORM); WBC MORPHOLOGY COMMENT NORMAL MORPHOLOGY (NORM)
[2018-03-01] MEDS: ceFAZolin Inj 2gm (Premix) 2 GM/50 ML BAG IV SCH (05:35)
[2018-03-01 05:54] LABS: BAND NEUTROPHILS % 0 % (0-10); BASOPHILS % (MANUAL) 0 % (0-1); EOSINOPHILS % (MANUAL) 2 % (0-8); MONOCYTES % (MANUAL) 7 % (0-12); NEUTROPHILS % (MANUAL) 66 % (50-80)
[2018-03-01] MEDS: Insulin Lispro Flexpen 300 UNIT/3 ML INSULN.PEN SUBCUT SCH ×4 (08:04→23:26)
[2018-03-01] MEDS: LOSARTAN 25 MG TABLET PO SCH (08:22)
[2018-03-01] MEDS: OMEPRAZOLE 40 MG CAPSULE PO SCH (08:22)
[2018-03-01] MEDS: PREGABALIN 100 MG CAPSULE PO SCH ×2 (08:22→21:11)
[2018-03-01] MEDS: CITALOPRAM 20 MG TABLET PO SCH (08:23)
[2018-03-01] MEDS: DOCUSATE 100 MG CAPSULE PO SCH ×2 (08:23→21:11)
[2018-03-01] MEDS: ENOXAPARIN SODIUM 30 MG/0.3 ML SYRINGE SUBCUT SCH (08:23)
--- NOTE | 2018-03-01 08:53 | ORTHO.PROG ---
Last Taken Vital Signs: Vital Signs - Last Taken Temperature 96.9 F 03/01/18 07:35 Pulse Rate 56 L 03/01/18 07:35 Respiratory Rate 16 03/01/18 07:35 Blood Pressure 101/66 03/01/18 07:35 Pulse Ox 96 03/01/18 07:35 Subjective: Patient doing well s/p Rt TKA. Has not gotten out of bed. Pain controlled. Objective: Afeb, VSS Dressing C/D/I RLE Distal LT sensation and motor function intact. Pulses 2+ with BCR. Able to straighten knee nearly straight (sitting with it flexed with pillows under the knee). Assessment: Doing well s/p RT TKA Plan: 1. D/C rod this am 2. PT to mobilize, WBAT RLE 3. Expect D/C to home tomorrow. 4. Plan for PT to remove fredrick wrap and place "tubagrip" compressive dressing today or tomorrow. 5. Appreciate hospitalist management. - Patient Problems (1) Total knee replacement status Current Visit: Yes Status: Acute Priority: High Onset Date: ~02/28/18 Code(s): Z96.659 - Presence of unspecified artificial knee joint Qualifiers: Laterality: right Qualified Code(s): Z96.651 - Presence of right artificial knee joint
--- NOTE | 2018-03-01 10:29 | PDOC(PROG) ---
Interval History: Patient is doing great this morning I had her dog brought in this made her very happy her dog's name is lauryn denies chest pain shortness of breath nausea or vomiting and she is participating in physical therapy Objective : Data - Labs CBC and BMP: 03/01/18 04:07 03/01/18 04:07 Objective : Exam - Respiratory Respiratory Exam: Clear to Auscultation - Bilaterally, Breathing Non Labored, Normal To Percussion, Normal to Percussion and Palpation - Cardiovascular Cardiovascular Exam: RRR, No Murmur, No Clicks, No Gallops, No Rubs, PMI Non- Displaced - GI/Abdominal GI/Abdominal Exam: Normal Bowel Sounds, Non Tender, Non Distended, Soft, No Masses, No Hepatomegaly, No Splenomegaly, No Organomegaly - Extremities Extremities Exam: Normal Capillary Refill, No Clubbing Present, No Edema Present Assessment and Plan - Patient Problems (1) Total knee replacement status Current Visit: Yes Status: Acute Priority: High Onset Date: ~02/28/18 Comment: Defer to orthopedic surgery most likely home tomorrow for pain management and DVT prophylaxis Code(s): Z96.659 - Presence of unspecified artificial knee joint Qualifiers: Laterality: right Qualified Code(s): Z96.651 - Presence of right artificial knee joint (2) Chronic kidney disease, stage 2 (mild) Current Visit: No Status: Chronic Priority: Low Onset Date: 04/21/16 Comment: Stable at present time Code(s): N18.2 - Chronic kidney disease, stage 2 (mild) (3) Controlled type 2 diabetes mellitus without complication, without long-term current use of insulin Current Visit: No Status: Chronic Onset Date: 06/01/17 Comment: They were present time hold metformin on sliding scale Code(s): E11.9 - Type 2 diabetes mellitus without complications (4) Depression with anxiety Current Visit: No Status: Chronic Onset Date: 06/09/16 Code(s): F41.8 - Other specified anxiety disorders (5) Diabetic neuropathy Current Visit: No Status: Chronic Comment: Continue Neurontin Code(s): E11.40 - Type 2 diabetes mellitus with diabetic neuropathy, unspecified (6) Essential hypertension Current Visit: No Status: Chronic Onset Date: 10/07/15 Comment: Stable Code(s): I10 - Essential (primary) hypertension (7) Gastroesophageal reflux disease Current Visit: No Status: Chronic Onset Date: 06/09/16 Comment: PPI Code(s): K21.9 - Gastro-esophageal reflux disease without esophagitis
[2018-03-01] MEDS ORDERED: Acetaminophen 1000mg Inj 1,000 MG/100 ML VIAL IV PRN (10:41)
[2018-03-01] MEDS: fentaNYL Inj 100 MCG/2 ML VIAL IVP PRN ×4 (12:30→21:11)
--- NOTE | 2018-03-01 16:01 | OTI REPORT ---
Thank you for the referral of Elvira Kowalski. She was seen on 03/01/18 for an occupational therapy evaluation status post right total knee arthroplasty. SUBJECTIVE: The patient is a 62-year-old female who underwent a right total knee arthroplasty. The patient lives at home with her . Prior to admission she was independent with all activities of daily living and functional activities. She reports that her home has three steps with a hand rail going from her dining room to her living room. Her bathroom is already set up with a high rise toilet seat as well as a walk in shower with a shower chair. PAST MEDICAL HISTORY: Past medical history can be found in the patient's medical record. OBJECTIVE FINDINGS: Activities of daily living: Today the patient had some difficulty with dressing tasks. She was issued a air conditioning mechanic industrial to doff her socks. She was able to don her pants with modified independence. The patient was issued a long handled bath sponge as the patient does have difficulty reaching her lower extremities and back region. Transfers: The patient is able to perform sit to stands with contact guard assist. ASSESSMENT: Today the patient did well with use of a air conditioning mechanic industrial. She did not want a sock aide as she said her could probably help her for a few days before she wanted to use that thoroughly. The patient is doing well. She more than likely will not need another session of OT. Short-Term Goals: To be met by discharge from inpatient: Patient will be able to dress self with use of air conditioning mechanic industrial and modified independence. Patient will be safe with all of her ADLs and functional transfers. TREATMENT PLAN: Patient will be discharged from occupational therapy at this time. INITIAL TREATMENT: Treatment today consisted of the initial evaluation activities only. ARIELLA
[2018-03-01] MEDS: ATORVASTATIN 40 MG TABLET PO SCH (21:11)
[2018-03-02] MEDS: oxyCODONE-ACETAMINOPHEN 5-325 TAB PO PRN ×5 (02:05→21:49)
[2018-03-02] MEDS: fentaNYL Inj 100 MCG/2 ML VIAL IVP PRN (05:41)
[2018-03-02 05:42] LABS: Hematocrit [HCT] 30.9 % (37.0-47.0); Hemoglobin [HGB] 9.6 g/dL (12.0-16.0); MEAN CORPUSCULAR HEMOGLOBIN 28.2 PG (27-31); MEAN CORPUSCULAR HGB CONC 31.1 g/dL (33-37); MEAN CORPUSCULAR VOLUME 90.9 FL (81-99); MEAN PLATELET VOLUME 12.2 FL (7.4-12.2)
[2018-03-02 06:13] LABS: BAND NEUTROPHILS % 0 % (0-10); BASOPHILS % (MANUAL) 0 % (0-1); EOSINOPHILS % (MANUAL) 0 % (0-8); MONOCYTES % (MANUAL) 7 % (0-12); NEUTROPHILS % (MANUAL) 77 % (50-80); PLATELET MORPHOLOGY COMMENT NORMAL MORPHOLOGY (NORM); RBC MORPHOLOGY COMMENT NORMAL MORPHOLOGY (NORM); WBC MORPHOLOGY COMMENT NORMAL MORPHOLOGY (NORM)
[2018-03-02] MEDS: KETOROLAC 30 MG/1 ML VIAL IVP PRN ×2 (07:34→17:14)
[2018-03-02] MEDS: Insulin Lispro Flexpen 300 UNIT/3 ML INSULN.PEN SUBCUT SCH ×4 (07:38→20:30)
[2018-03-02] MEDS: CITALOPRAM 20 MG TABLET PO SCH (08:39)
[2018-03-02] MEDS: OMEPRAZOLE 40 MG CAPSULE PO SCH (08:39)
[2018-03-02] MEDS: DOCUSATE 100 MG CAPSULE PO SCH ×2 (08:39→21:49)
[2018-03-02] MEDS: LOSARTAN 25 MG TABLET PO SCH (08:39)
[2018-03-02] MEDS: PREGABALIN 100 MG CAPSULE PO SCH ×2 (08:39→21:49)
--- NOTE | 2018-03-02 11:19 | PDOC(PROG) ---
Interval History: Patient is doing much better today we had to reinstitute her by mouth Percocet for pain control she was describing a 10 out of 10 yesterday and other measures did not work including the Toradol IV Tylenol no complaints this morning other than that physical therapy is hard Objective : Data - Labs CBC and BMP: 03/02/18 04:22 03/02/18 04:22 Objective : Exam - General General Appearance: Cooperative - Respiratory Respiratory Exam: Clear to Auscultation - Bilaterally, Breathing Non Labored, Normal To Percussion, Normal to Percussion and Palpation - Cardiovascular Cardiovascular Exam: RRR, No Murmur, No Clicks, No Gallops, No Rubs, PMI Non- Displaced - GI/Abdominal GI/Abdominal Exam: Normal Bowel Sounds, Non Tender, Non Distended, Soft, No Masses, No Hepatomegaly, No Splenomegaly, No Organomegaly - Extremities Extremities Exam: No Clubbing Present, No Edema Present, No Cyanosis Present - Neurological Neurological Exam: Oriented x 3, CN II-XII Intact, No Facial Droop Assessment and Plan - Patient Problems (1) Total knee replacement status Current Visit: Yes Status: Acute Priority: High Onset Date: ~02/28/18 Comment: Defer to orthopedic surgery for anticoagulation and PT OT orders Code(s): Z96.659 - Presence of unspecified artificial knee joint Qualifiers: Laterality: right Qualified Code(s): Z96.651 - Presence of right artificial knee joint (2) Chronic kidney disease, stage 2 (mild) Current Visit: No Status: Chronic Priority: Low Onset Date: 04/21/16 Comment: Stable Code(s): N18.2 - Chronic kidney disease, stage 2 (mild) (3) Controlled type 2 diabetes mellitus without complication, without long-term current use of insulin Current Visit: No Status: Chronic Onset Date: 06/01/17 Comment: Sugars controlled Code(s): E11.9 - Type 2 diabetes mellitus without complications (4) Depression with anxiety Current Visit: No Status: Chronic Onset Date: 06/09/16 Comment: Stable much better since we let her daughter come in Code(s): F41.8 - Other specified anxiety disorders (5) Diabetic neuropathy Current Visit: No Status: Chronic Comment: Continue meds Code(s): E11.40 - Type 2 diabetes mellitus with diabetic neuropathy, unspecified (6) Essential hypertension Current Visit: No Status: Chronic Onset Date: 10/07/15 Comment: Stable Code(s): I10 - Essential (primary) hypertension (7) Gastroesophageal reflux disease Current Visit: No Status: Chronic Onset Date: 06/09/16 Comment: Stable Code(s): K21.9 - Gastro-esophageal reflux disease without esophagitis
[2018-03-02] MEDS: ENOXAPARIN SODIUM 30 MG/0.3 ML SYRINGE SUBCUT SCH (11:23)
--- NOTE | 2018-03-02 14:40 | PTI REPORT ---
Thank you for the referral of Elvira Kowalski. She was seen on 03/01/18 for an inpatient evaluation status post right total knee replacement. SUBJECTIVE: The patient is a 62-year-old female who underwent a right total knee replacement yesterday afternoon. The patient states that she is doing fairly well. She states that she has feeling into her right lower extremity but complains of a pain level of 7/10 on the verbal analog scale (0=no pain, 10= worst pain) in her right knee. Nursing staff did notify the patient that Dr. Keenan would like the patient's Renny bandage and wrap to be removed and for Tubigrip to be placed over the right lower extremity. The patient lives in [place] with her and she states that she has three stairs within her home and has a railing on both sides of the stairs. The patient has a previous history of a cervical fusion and a lumbar fusion and does have issues with left foot pain. PAST MEDICAL HISTORY: Past medical history can be found in the patient's medical record. OBJECTIVE FINDINGS: General observations: The patient was alert and oriented to setting upon PT arrival. The patient was on two liters of oxygen and did have a Harris in place. The patient's Renny bandage and wrapping was removed from the right lower extremity. The dressing directly over the incision was left in place and Tubigrip was placed over the right lower extremity. The patient was instructed to keep the Tubigrip on at all times. The patient was then instructed on how to properly perform a quad set in order to start activation of the quadriceps muscle group. The patient was advised not to place a pillow underneath her knee as we want to prevent any flexion contractures. The patient was also instructed on how to properly perform heel slides in order to promote knee flexion. Bed mobility: The patient required mod assist x1 to go from supine to seated edge of bed position. Once seated edge of bed the patient denied any lightheadedness or dizziness. The patient's socks were then placed on her feet and a gait belt was placed around the patient. Transfers: The patient was able to perform a sit to stand transfer with the bed slightly raised with contact guard assist x1 for safety and verbal cueing in order to place her surgery side slightly in front of her non surgical side to decrease the weight-bearing on the surgery side due to her pain level and also to push off from the bed vs. grabbing onto the walker. Once the patient was in a standing position, she denied any lightheadedness or dizziness and stated that she felt pretty good. The patient performed a stand to seated transfer into the chair with contact guard assist x1 for safety. Ambulation: The patient ambulated 5 feet forward and was instructed on how to step onto the scale, leading up with her good leg and down with the surgery side. After her weight was obtained, she ambulated toward the chair, which was 10 feet. ASSESSMENT: The patient has good rehab potential. Problem List: Decreased range of motion of the right knee Increased pain in the right knee Decreased strength in the right knee Short-Term Goals: To be met by discharge from inpatient: Patient will be able to perform all transfers from bed to stand safely and independently. Patient will be able to ambulate at least 150 feet with front wheeled walker and weight-bearing as tolerated on the right. Patient will be able to ascend and descend 5 stairs with walker and weight- bearing as tolerated on the right and do so safely. Long-Term Goals: To be met following discharge from inpatient: Patient will be seen by outpatient physical therapy for rehab of her right total knee. TREATMENT PLAN: Patient will be seen B.I.D during the week and one time per day over the weekend as an inpatient to work on safety and independence with transfers, improving her ambulation distance and safety with ambulation with front wheeled walker, stair training, and general range of motion and strengthening activities. INITIAL TREATMENT: Treatment today consisted of the initial evaluation followed by one unit of functional activity. The patient was then instructed on how to properly perform a quad set in order to start activation of the quadriceps muscle group. The patient was advised not to place a pillow underneath her knee as we want to prevent any flexion contractures. The patient was also instructed on how to properly perform heel slides in order to promote knee flexion. Following treatment the patient was left in chair with chair alarm set and call light within reach. [facility]
--- NOTE | 2018-03-02 14:47 | PT PM DAY ---
Diagnosis : Right Total Knee Arthroplasty PM - Physical Therapy S: The patient was brought down to therapy by occupational therapy. She still does have the Harris in place so she was not able to get dressed, but states that she is doing fair. They are still attempting to get her pain better under control. She states that with occupational therapy she was able to ambulate with the front wheeled walker for a good distance. O: Treatment today consisted of an application of moist heat pack x20 minutes including set up to the right knee. The patient was instructed in therex consisting of quad sets, heel slides, straight leg raises, short arc quads, and ankle dorsiflexion/plantarflexion. The patient then performed a supine to seated edge of bed transfer and required mod assist x1. Once sitting edge of bed the patient stated that she was feeling a little lightheaded so she did sit at the edge of the bed x3 minutes. After that, the patient stated that she was feeling better. Prior to sitting edge of bed, the nurse did come down and give the patient pain medication. The patient was able to perform a sit to stand transfer requiring min verbal cueing for proper hand placement and foot placement. Once standing, the patient was able to ambulate 75 feet with the use of the front wheeled walker and contact guard assist x1. The patient demonstrated a step to pattern with decreased stance time on the right lower extremity. The patient was able to do so safely with the front wheeled walker. The patient was then brought back to her room where she transferred from the wheelchair to the toilet with front wheeled walker. The patient was left with nursing staff in order for them to remove her Harris. A: The patient did very well with therapy this afternoon. She was able to walk further distance and demonstrated a safe gait pattern with the front wheeled walker. The patient is still having some issues with pain of her right knee but overall is doing better than this morning. We will plan on working on some boxes and stairs tomorrow in anticipation that the patient will most likely go home tomorrow. P: Continue seeing patient BID during the week and one time per day over the weekend for transfers, ambulation, and range of motion/strengthening exercises. ARIELLA
--- NOTE | 2018-03-02 16:26 | PT.PROG ---
Progress Note Progress Note: S. Patient stated that she is struggling with pain at this time. She reports her pain as a 7/10 before therapy. O. Patient ambulated 175 feet to the therapy gym where she had heat to her knee then performed heel slides, quad sets, glut sets, ankle pumps, short arc quads, straight leg raises, hip abduction/adduction, sit to stands all x 10, box step ups with #2 box x 10. Patient ambulated 175 feet back to her room where she was left with alarm and call light. A. Patient tolerated therapy fair this morning, she required min assist with box step ups, she is fearful of performing activities that may cause her pain. Patient would continue to benefit from skilled therapy to increase strength, and mobility. Patient would benefit from stair training at this time. P. continue POC.
--- NOTE | 2018-03-02 16:34 | PT.PROG ---
Progress Note Progress Note: S. Patient states that her pain is about an 8/10 this afternoon. She reports that she is very worried about going home with the amount of pain she is having. O. Patient ambulated 175 feet to the therapy gym where she had heat and micro massage to her knee to decrease pain and edema then performed heel slides, quad sets, ankle pumps, short arc quads, glut sets, straight leg raises, sit to stands all x 10 then performed box step ups with #2 box, patient then attempted to perform stair training where she was able to ascend and descend 2 stairs, She then ambulated 175 feet back to her room and was left in bed with alarm and call light. A. Patient tolerated therapy fair this afternoon, she continues to struggle with pain and was unable to perform stair training as well as hoped. Patient would benefit from more Physical therapy to increase strength and endurance to complete the amount of stair training needed for safety at home. P. Continue POC.
[2018-03-02] MEDS: ATORVASTATIN 40 MG TABLET PO SCH (21:49)
[2018-03-03] MEDS: oxyCODONE-ACETAMINOPHEN 5-325 TAB PO PRN ×2 (01:43→08:02)
[2018-03-03] MEDS: Insulin Lispro Flexpen 300 UNIT/3 ML INSULN.PEN SUBCUT SCH (06:59)
[2018-03-03 07:00] VITALS: BP 115/62; TEMP 97.9; O2SAT 90
[2018-03-03] MEDS: DOCUSATE 100 MG CAPSULE PO SCH (08:02)
[2018-03-03] MEDS: LOSARTAN 25 MG TABLET PO SCH (08:02)
[2018-03-03] MEDS: CITALOPRAM 20 MG TABLET PO SCH (08:03)
[2018-03-03] MEDS: ENOXAPARIN SODIUM 30 MG/0.3 ML SYRINGE SUBCUT SCH (08:03)
[2018-03-03] MEDS: OMEPRAZOLE 40 MG CAPSULE PO SCH (08:03)
[2018-03-03] MEDS: PREGABALIN 100 MG CAPSULE PO SCH (08:03)
[2018-03-03 09:43] VITALS: RESP 16
--- NOTE | 2018-03-03 11:29 | PDOC(PROG) ---
Interval History: Patient is doing great today has no complaints she is being discharged by Dr. Keenan all anticoagulation and pain control and PT OT orders will be handled by the orthopedic surgeon. No chest pain nausea or vomiting nurses discussed this with Dr. Keenan over the phone no change in medication from my standpoint Objective : Data - Labs CBC and BMP: 03/02/18 04:22 03/02/18 04:22 Objective : Exam - Head Head Exam: Normal Inspection, Normocephalic, Atraumatic - Neck Neck Exam: Normal Inspection, Full ROM, No Tenderness - Respiratory Respiratory Exam: Clear to Auscultation - Bilaterally, Breathing Non Labored, Normal To Percussion, Normal to Percussion and Palpation - Cardiovascular Cardiovascular Exam: RRR, No Murmur, No Clicks, No Gallops, No Rubs, PMI Non- Displaced - GI/Abdominal GI/Abdominal Exam: Normal Bowel Sounds, Non Tender, Non Distended, Soft, No Masses, No Hepatomegaly, No Splenomegaly, No Organomegaly - Extremities Extremities Exam: No Clubbing Present, No Edema Present, No Cyanosis Present - Neurological Neurological Exam: Alert, Oriented x 3, No Facial Droop, Speech Intact / Clear Assessment and Plan - Patient Problems (1) Total knee replacement status Status: Acute Priority: High Onset Date: ~02/28/18 Comment: Patient is being discharged home by Dr. Keenan see HPI Code(s): Z96.659 - Presence of unspecified artificial knee joint Qualifiers: Laterality: right Qualified Code(s): Z96.651 - Presence of right artificial knee joint (2) Chronic kidney disease, stage 2 (mild) Status: Chronic Priority: Low Onset Date: 04/21/16 Comment: Stable Code(s): N18.2 - Chronic kidney disease, stage 2 (mild) (3) Controlled type 2 diabetes mellitus without complication, without long-term current use of insulin Status: Chronic Onset Date: 06/01/17 Comment: Patient can resume home meds Code(s): E11.9 - Type 2 diabetes mellitus without complications (4) Depression with anxiety Status: Chronic Onset Date: 06/09/16 Comment: Stable Code(s): F41.8 - Other specified anxiety disorders (5) Diabetic neuropathy Status: Chronic Comment: Stable Code(s): E11.40 - Type 2 diabetes mellitus with diabetic neuropathy, unspecified (6) Essential hypertension Status: Chronic Onset Date: 10/07/15 Comment: Stable Code(s): I10 - Essential (primary) hypertension (7) Gastroesophageal reflux disease Status: Chronic Onset Date: 06/09/16 Comment: Stable Code(s): K21.9 - Gastro-esophageal reflux disease without esophagitis - Assessment / Plan Additional Assessment/Plan Details: I will sign off the case thank you
--- NOTE | 2018-03-03 16:56 | PT.PROG ---
Progress Note Progress Note: S. patient stated that she is feeling good and feels ready to go home. O. patient ambulated 175 feet to the therapy gym where she had heat and performed exercises in the form of; quad sets, heel slides, short arc quads, straight leg raises, hip abduction/adduction, seated long arc quads, marches, sit to stands all x 10. Patient performed box step ups with #3 box x 10, then ascended and descended 5 stairs and ambulated 175 feet back to her room where she was left with alarm and call light. A. Patient tolerated therapy well, she has met all goals at this time and would continue to benefit from Outpatient therapy at this time. P. Continue POC until discharge.
--- NOTE | 2018-03-28 09:24 | ORTHO.DC ---
Discharge Summary Hospital Course: This is an addendum to the discharge summary dictated on 03/16/2018. Pt was actually discharged on 03/03 not 03/02 as dictated. She was transitioned to inpatient due to an inability to pass physical therapy for home discharge. Discharge Medications: Discharge Medications Oxygen (O2) 2 unit INH HS #2 unit 01/17/14 [History] atorvastatin 40 mg tablet 40 mg PO DAILY #90 tab 07/08/17 [Clinic] amlodipine 10 mg tablet 10 mg PO DAILY #90 tab 08/10/17 [Rx] hydrochlorothiazide 25 mg tablet 25 mg PO DAILY #90 tab 08/10/17 [Rx] naproxen 250 mg tablet 250 mg PO BID #180 tab 08/30/17 [Rx] losartan 25 mg tablet 25 mg PO QD #90 tab 09/27/17 [Rx] metformin 500 mg tablet 1,000 mg PO BID #360 tab 12/28/17 [Rx] onabotulinumtoxinA 200 unit solution for injection 200 unit IM ONCE PRN [History] pregabalin 200 mg capsule 200 mg PO BID #180 tab-cap 02/07/18 [Rx] diclofenac sodium 50 mg tablet,delayed release 50 mg PO BID PRN 02/21/18 [ History] citalopram 40 mg tablet 40 mg PO DAILY #90 tab 02/23/18 [Rx] omeprazole 40 mg capsule,delayed release 40 mg PO DAILY #90 cap 02/23/18 [Rx] Follow-Up: Ho Keenan [STAFF PHYSICIAN] - 03/16/18 11:30 am (Appt in [place], [place] ) MARIA HARRIS [Primary Care Provider] - As Needed Discharge Instructions Provided to Patient / Family: Enoxaparin (By injection) , Joint Replacement Surgery (DC) Exam - Vitals Vital Signs: Vital Signs Temperature 97.9 F Temperature Source Temporal Artery Scan Pulse Rate [Apical] 78 Pulse Rate [Pulse Oximeter] 66 Pulse Rate 69 Respiratory Rate 16 Blood Pressure [Left Arm] 115/62 Blood Pressure 127/77 Pulse Ox 90 Oxygen Flow Rate 1.5 Oxygen Delivery Method Nasal Cannula Height 5 ft 11 in Weight 121.018 kg
== END 2018-03-03 11:04 | disposition home or self-care (01) | DRG 554 ==
LOC: OR 11:00 → EDSTATUS 13:15 → MED/SURG 16:40 → INTOOBSV 16:40
PROVIDERS: ADMIT Orthopaedic Surgery; ATTEND Orthopaedic Surgery

== ENCOUNTER 2019-03-22 11:49 | Inpatient (IN) ==
[~2019-03-22 11:49] MED LIST changes: +BACITRACIN 0.9 GM PACKET OINT TOPICAL ONE; +BACITRACIN 50,000 UNIT VIAL IRRIG ONE; +Nasal Sanitizer POPSWAB ampule 3 AMP (Nozin) PREOP DOSE ENOS SCH; +Sodium Chloride 0.9% 250 ML ONE; +Sodium Chloride 0.9% vial 10 ML ONE; +THROMBIN (BOVINE) 20,000 UNIT KIT TOPICAL ONE; +Vancomycin Inj 1gm vial ONE
[2019-03-22 12:14] LABS: BILIRUBIN,URINE NEGATIVE (NEG); CLARITY,URINE CLEAR (CLEAR); COLOR,URINE YELLOW (Y); GLUCOSE, URINE (UA) NEGATIVE (NEG); OCCULT BLOOD,URINE NEGATIVE (NEG); PROTEIN,URINE NEGATIVE (NEG)
[2019-03-22 12:19] LABS: URINE SAMPLE TYPE CLEAN CATCH URINE
[2019-03-22] MEDS ORDERED: fentaNYL Inj 250 MCG/5 ML VIAL ONE ×2 (14:55→18:43)
[2019-03-22] MEDS ORDERED: LIDOCAINE MPF 2% - 5 ML (20 MG/1 ML) ONE (14:56)
[2019-03-22] MEDS ORDERED: TRANEXAMIC ACID 1,000 MG / 10 ML VIAL ONE (14:57)
[2019-03-22] MEDS ORDERED: PROPOFOL 10 MG/1 ML (200 MG/20 ML) VIAL IV ONE (14:57)
[2019-03-22] MEDS ORDERED: KETOROLAC 30 MG/1 ML VIAL ONE (14:57)
[2019-03-22] MEDS ORDERED: ONDANSETRON 4 MG/2 ML VIAL ONE (14:57)
[2019-03-22] MEDS ORDERED: ROCURONIUM 10 MG/1 ML - 5 ML VIAL IVP ONE (14:58)
[2019-03-22] MEDS ORDERED: PROTAMINE SULFATE IVP ONE (15:08)
--- NOTE | 2019-03-22 16:03 | DI ---
US Veins, UE/LE [employer] 03/22/2019 3:07 PM History: [facility] ^swelling calf Comparison: None. Procedure: Left lower extremity Doppler ultrasound. Findings: There is normal flow, compressibility, and respiratory variation from the level of the comm on femoral vein to the popliteal vein on the left. There is normal augmentation of flow. Additionally , the deep veins below the knee that could be imaged were evaluated without evidence of thrombosis, t simeon sensitivity is much lower in the evaluation of vessels below the knee. There is a 0.8 cm AP x 2.0 cm transverse x 6.6 cm CC fluid collection with no internal vascular flow in the popliteal fossa, most likely representing a popliteal cyst. Impression: 1. No sonographic evidence of deep vein thrombosis. 2. Probable popliteal cyst.
[2019-03-22] MEDS ORDERED: ePHEDrine Inj 50 MG/ML AMP ONE (17:22)
[2019-03-22] MEDS ORDERED: Propofol 1,000 MG/100 ML VIAL IV ONE ×2 (17:22→18:25)
[2019-03-22] MEDS ORDERED: THROMBIN (BOVINE) 20,000 UNIT KIT TOPICAL ONE (18:26)
[2019-03-22] MEDS ORDERED: Lactated Ringers 1,000 ML PRIMARY IV ONE (18:42)
[2019-03-22] MEDS ORDERED: SUGAMMADEX SODIUM 200 MG/2 ML VIAL IV ONE (19:51)
[2019-03-22] MEDS ORDERED: Meperidine Inj 50 MG/ML CARPUJECT IVP PRN (20:09)
[2019-03-22] MEDS ORDERED: NALOXONE 0.4 MG/1 ML VIAL IVP PRN (20:09)
[2019-03-22] MEDS ORDERED: fentaNYL Inj 100 MCG/2 ML VIAL IVP PRN (20:09)
[2019-03-22] MEDS ORDERED: LIDOCAINE W/ SODIUM BICARB 0.5 ML SYR SUBD PRN (20:09)
[2019-03-22] MEDS ORDERED: Metoclopramide Inj 10 MG/2 ML VIAL IVP PRN (20:09)
[2019-03-22] MEDS ORDERED: PROMETHAZINE 25 MG/1 ML VIAL IM PRN (20:09)
[2019-03-22] MEDS ORDERED: Prochlorperazine Edisylate Inj 10mg/2ml vial IVP PRN (20:09)
--- NOTE | 2019-03-22 20:11 | CRNA.PROGR ---
Anesthesia Time - Procedure/Recovery Time Start Date: 03/22/19 End Date: 03/22/19 Anesthesia : Time In: 15:52 Anesthesia : Time Out: 19:59 Anesthesia : Total Time: 247 - Total Anesthesia Time Total Anesthesia Time (minutes): 247 - Other Weight: 118.932 kg Height: 5 ft 11 in Body Mass Index (BMI): 36.6 Physical Status: P3 Anesthesia Type: General Anesthesia : ET
[2019-03-22] MEDS ORDERED: Lactated Ringers 1,000 ML PRIMARY IV SCH (20:15)
[2019-03-22] MEDS: HYDROmorphone 2 MG/1 ML IVP PRN ×2 (20:28→21:12)
--- NOTE | 2019-03-22 20:53 | OPNOTE.NEU ---
Operative Note Operative Note: Neurosurgical Services Operative Note [facility] [id number] Elvira Kowalski Date of Surgery: 03/22/19 Preoperative Diagnosis: SPONDYLOLISTHESIS, L4-5 Lumbar herniated disc WITH RADICULOPATHY Post-Op Diagnosis Codes: Same Procedure(s): L4-5 Posterior decompression and fusion 1. Posterior decompression with complete facetectomy, [id number] 2. Inner body arthrodesis; 3. Implantation Insert and Rotate Allograft Bone Spacer, 4. Non-segmental pedicle screw instrumentation, 5. Inner transverse fusion; () 6. Preparation of graft: A. [place] of local bone graft; same incision, B. [place] of morselized graft iliac crest; different incision; C. Bone marrow aspirate, D. Allograft demineralized bone matrix and calcium osteopromotive compound, 7. Intraoperative microscopy, microsurgical technique 8. Intraoperative fluoroscopy; [id number] 9. Continuous intraoperative motor and sensory monitoring Surgeon(s): Demar Lucero MD Flour Blender(s): ZENON Cope Anesthesia: General Anesthesia Anesthesiologist / UTILITIES OPERATOR: Eyal Sorensen MD Brief Findings: Large recurrent herniated disc. Severe neural compression. Procedure(s): We discussed the procedure, risks, advantages and disadvantages of surgical intervention at length. To prevent further pain, disability and potential progression of neurologic deficits, the patient would like to proceed with surgery. Introduction: After obtaining informed consent, careful consideration of the pre-operative studies and evaluation, the patient asked to proceed with surgery. The patient was taken to the operating room, given an anesthetic, positioned and prepared for surgery. All pressure points were meticulously padded and great care was taken to insure the patient was appropriately positioned to avoid any abnormal strain on the extremities or any other area. The operative region was prepared with iodine solution and isolated aseptically using routine sterile draping. Position / Approach: The patient was placed in the prone position such that a posterior approach could be taken to the lumbar levels. EXPOSURE: A midline incision was opened sharply and extended slightly cephalad and caudad so as to incorporate the abnormal level of the patient's spine using the fluoroscope for visualization and planning. Dissection was carried with elec trocautery through the subcutaneous tissues then subperiosteally along the spinous processes then lamina laterally to the lateral facet joints to the transverse processes. A self retaining retractor was inserted exposing the posterior spine. DECOMPRESSION: As the spine was exposed, it was clear that the involved joint was markedly incompetent. The joint was removed medial to lateral confirming there was foraminal stenosis from herniated disk as well as calcification which extended out into the foramen bilaterally. To adequately decompress the level, both facets were completely removed. The decompression was much more extensive then would be required for placement of a posterior arthrodesis alone. Both the traversing as well as the exiting nerve roots were decompressed on each side. There was herniated disk beneath the thecal sac and removal with down biting curettes with minimal manipulation of the thecal sac. Annulotomies were placed bilaterally and disk distractor's were placed in the disk space. While distracting, a radical discectomy was performed bilaterally. The epidural space was explored extensively also to confirm no further pressure was present on any of the exiting or traversing neural elements. ARTHRODESIS: The endplates above and below the abnormal disk were scraped of cartilaginous tissue and allograft insert and rotate machined bone graft spacers were placed bilaterally. The space between the bone graft was preloaded with the bone graft mixture described below, and this mixture was also placed lateral to the bone spacers within the disk space. The bone spacers were countersunk appropriately using the fluoroscope for visualization. HARVEST / PREPARATION of BONE GRAFT: The "bone graft" was prepared from the patient's own bone derived from the left hip collected by curetting bone from the hip through a separate slab incision(). This morselized bone was admixed with bone marrow aspirate also obtained from the hip (). Autologous local bone which was removed during the decompression through the same incision used for the fusion was stripped of surrounding soft tissues, morselized () and mixed with osteopromotive calcium compound as well as allograft demineralized bone matrix (), and this was combined with the previously described hip graft and concentrated bone marrow aspirate to form the "bone graft." NON SEGMENTAL INSTRUMENTATION: The pedicles of above and below the abnormal disk were then identified under direct vision as well as using the fluoroscope for visualization. The pedicles were probed and tapped and pedicle screws were advanced, which were further tested using motor stimulation and monitoring. The screws were identified to have appropriate impedances suggesting no evidence of any contact with the surrounding neural elements. Having placed pedicle screws, they were interconnected with rods, and a cross-link was placed. INNER TRANSVERSE FUSION: Attention was directed to the lateral aspect of the spine. The transverse processes above and below the level were eburnated using a high speed drill equipped with a clair bur. Between this region of bone, the patient's own bone, described previously as "bone graft mixture", consisting of allograft, demineralized bone matrix, calcium compound, bone marrow aspirate, as well as morselized graft from the hip were placed between the transverse processes. NEED FOR CHANNELER OUTSOLE: Maurilio Reese PA-C, was instrumental throughout the operation to assist with exposure of the neural structures and protect them as the bony elements were removed. She was also instrumental during placement of the implant(s) which often takes more than two hands to perform safely and efficiently. OTHER TOOLS USED / UTILITY: All manipulation of the neural elements was performed using the microscope for visualization. As well, the fluoroscope was used to confirm the levels as indicated as well as to assist during implant placement and later to assess the patient's spinal alignment. There were no intra operative complications. CLOSURE: Thereafter, the wound was irrigated with copious amounts of antibiotic impregnated saline solution. Immaculate hemostasis was achieved using thrombin soaked Gelfoam, bone wax along the bony margins, as well as electrocautery. The wound was then closed in anatomical layers using Vicryl suture in the subcutaneous tissues followed by myriam on the skin. Estimated blood loss was less than 250 cc and none was replaced. Following the procedure the patient will be returned to the supine position, extubated then transferred to the recovery room, anticipating them to be in stable condition as compared to pre-surgically. Estimated Blood Loss: 250 cc Operative hemorrhage? Yes, expected amount. Drains: Hemovac Condition: Good Complications: None Authenticated by Dr. Lucero On Production
[2019-03-22] MEDS ORDERED: HYDROmorphone 2 MG/1 ML IVP PRN (21:45)
[2019-03-22] MEDS: AMITRIPTYLINE 25 MG TABLET PO SCH (22:28)
[2019-03-22] MEDS: PREGABALIN 100 MG CAPSULE PO SCH (22:28)
[2019-03-22] MEDS: Topiramate Tab 50 MG TAB PO SCH (22:28)
[2019-03-23] MEDS: ceFAZolin Inj 1 GM in Sodium Chloride 0.9% 100 ML IV SCH ×3 (01:14→18:19)
[2019-03-23] MEDS: D5-1/2NS + 20mEq KCL 1,000 ML PRIMARY IV SCH ×3 (06:11→20:10)
[2019-03-23 07:08] LABS: BASOPHILS # (AUTO) 0.01 10*3/UL; BASOPHILS % (AUTO) 0.2 % (0-1); EOSINOPHILS # (AUTO) 0 10*3/UL; EOSINOPHILS % (AUTO) 0 % (0-8); Hematocrit [HCT] 31.6 % (37.0-47.0); Hemoglobin [HGB] 9.9 g/dL (12.0-16.0); LYMPHOCYTES # (AUTO) 0.59 10*3/uL; MEAN CORPUSCULAR HEMOGLOBIN 29.8 PG (27-31); MEAN CORPUSCULAR HGB CONC 31.3 g/dL (33-37); MEAN CORPUSCULAR VOLUME 95.2 FL (81-99); MEAN PLATELET VOLUME 11.6 FL (7.4-12.2); MONOCYTES # (AUTO) 0.48 10*3/UL (0.3-0.8); MONOCYTES % (AUTO) 7.7 % (5-15); NEUTROPHILS # (AUTO) 5.18 10*3/UL; NEUTROPHILS % (AUTO) 82.5 % (50-80); RED BLOOD COUNT 3.32 10^6/uL (4.20-5.40)
[2019-03-23 07:20] LABS: PLATELET MORPHOLOGY COMMENT NORMAL MORPHOLOGY (NORM); RBC MORPHOLOGY COMMENT NORMAL MORPHOLOGY (NORM); WBC MORPHOLOGY COMMENT NORMAL MORPHOLOGY (NORM)
[2019-03-23 07:27] LABS: BUN/CREATININE RATIO 24.54 (6-20)
[2019-03-23] MEDS: HYDROCHLOROTHIAZIDE 25 MG TABLET PO SCH (07:46)
[2019-03-23] MEDS: OMEPRAZOLE 40 MG CAPSULE PO SCH (07:46)
[2019-03-23] MEDS ORDERED: ATORVASTATIN 40 MG TABLET PO SCH (09:00)
[2019-03-23] MEDS: oxyCODONE-ACETAMINOPHEN 5-325 TAB PO PRN ×3 (09:19→19:14)
[2019-03-23] MEDS: PREGABALIN 100 MG CAPSULE PO SCH ×2 (09:40→20:16)
[2019-03-23] MEDS: Topiramate Tab 50 MG TAB PO SCH ×2 (09:40→20:16)
[2019-03-23] MEDS: CITALOPRAM 20 MG TABLET PO SCH (09:40)
[2019-03-23] MEDS: metFORMIN 500 MG TABLET PO SCH ×2 (09:40→20:16)
[2019-03-23] MEDS: LOSARTAN 25 MG TABLET PO SCH (09:40)
[2019-03-23] MEDS: DIVALPROEX SODIUM 250 MG TABLET PO SCH ×2 (09:41→20:16)
--- NOTE | 2019-03-23 11:48 | PTI REPORT ---
Thank you for the referral of Elvira Kowalski. She was seen on 03/23/19 for an inpatient evaluation status post lumbar fusion. SUBJECTIVE: The patient is a 64-year-old female who underwent a lumbar fusion yesterday. The patient is sitting up in her chair. She does complain of 10/10 pain, primarily in her back and into her left lower extremity. She states she is unable to lift her left lower extremity and complains of left hip pain. The patient states that a couple of days prior to her surgery she was having difficulties with lifting her left lower extremity and difficulties with ambulation. 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 The patient states that she is ambulating slightly better than she was prior to her surgery. Over the last few days the patient states that she has been using a walker due to the drop foot type symptoms she is having on the left lower extremity, but primarily had used a single point cane for ambulation. The patient lives in [place] where she lives with her . She states there is no stairs to get into the home, but there are three stairs to go from the living room to the dining room within the home. The patient does have a previous history of falls and also has undergone a previous laminectomy for her cervical and lumbar spine and a right total knee replacement approximately one year ago. PAST MEDICAL HISTORY: Past medical history can be found in the patient's medical record. OBJECTIVE FINDINGS: General observations: The patient was alert and oriented to setting upon PT arrival. The patient was sitting up in the chair on three liters of oxygen with her oxygen saturation at 98%. The patient does have a drain in place and also did have her back brace in place. The patient was instructed on status post lumbar fusion precautions to include no bending/lifting/twisting. The patient was educated that she is to wear her brace whenever she is up and moving and for comfort measures she can wear it while she is sitting or laying down. The patient was instructed to get up and walk every hour along with performing gentle nerve glides by performing ankle dorsiflexion and plantarflexion in supine and seated positions. Bed mobility: The patient was also educated on a proper log roll. At this time the patient was not willing to get back into bed. We will practice the log roll this afternoon, but it was demonstrated to her through pictures. Pain: The patient did complain of 10/10 pain and shortly after we started our evaluation the nursing staff did arrive and did get the patient her pain medication. Transfers: After we reviewed our precautions, the patient was able to transfer from a seated to standing position with contact guard assist x1 for safety. The patient demonstrated fair initial standing balance with hand hold assist x2 on the walker. We did need to stand for a moment for the patient to get her bearings. The patient then transferred back into the chair with stand by assist x1 for safety. Ambulation: The patient was able to ambulate 50 feet with a front wheeled walker and contact guard assist x1 for safety. ASSESSMENT: The patient has fair rehab potential secondary to her age and past medical history. Problem List: Patient is status post lumbar fusion Decreased mobility Decreased ability to perform transfers Weakness Short-Term Goals: To be met by discharge from inpatient: Patient will be able to don and doff her brace independently. Patient will be able to verbalize lumbar precautions. Patient will be able to transfer from bed to stand safely and independently and be able to perform a log roll into and out of bed correctly. Patient will be able to ambulate at least 150 feet safely with a front wheeled walker. Patient will be able to ascend and descend at least three stairs safely with use of walker in order to return back home. Long-Term Goals: To be met following discharge from inpatient: Patient most likely will be seen by outpatient physical therapy to complete lumbar fusion rehab. TREATMENT PLAN: Patient will be seen B.I.D during the week and one time per day over the weekend as an inpatient to address the above goals and objectives. INITIAL TREATMENT: Treatment today consisted of the initial evaluation followed by one unit of functional activity. Following treatment the patient was left in chair with chair alarm set and call light was placed within reach. The patient did request to keep her back brace in place while she was sitting up. ARIELLA
--- NOTE | 2019-03-23 16:08 | PT.PROG ---
Progress Note Progress Note: s. Patient stated that she is a little sore this afternoon, however agreed to go for a walk. O. Patient performed log roll with contact guard assist, then ambulated 150 feet in the preciado and back to her room where she performed log roll to get back in bed where she was left with alarm and call light. A. Patient tolerated ambulation well, she was able to perform log rolls with contact guard assist. She would benefit from 1-2 more sessions of therapy to perform stair training and complete all goals. P. Continue POC.
[2019-03-23] MEDS: AMITRIPTYLINE 25 MG TABLET PO SCH (20:16)
[2019-03-24] MEDS: oxyCODONE-ACETAMINOPHEN 5-325 TAB PO PRN ×5 (03:31→21:30)
[2019-03-24] MEDS: PREGABALIN 100 MG CAPSULE PO SCH ×2 (08:10→21:30)
[2019-03-24] MEDS: HYDROCHLOROTHIAZIDE 25 MG TABLET PO SCH (08:10)
[2019-03-24] MEDS: CITALOPRAM 20 MG TABLET PO SCH (08:10)
[2019-03-24] MEDS: LOSARTAN 25 MG TABLET PO SCH (08:11)
[2019-03-24] MEDS: OMEPRAZOLE 40 MG CAPSULE PO SCH (08:11)
[2019-03-24] MEDS: metFORMIN 500 MG TABLET PO SCH ×2 (08:12→21:31)
[2019-03-24] MEDS: Topiramate Tab 50 MG TAB PO SCH ×2 (08:12→21:29)
[2019-03-24] MEDS: DIVALPROEX SODIUM 250 MG TABLET PO SCH ×2 (08:12→21:31)
--- NOTE | 2019-03-24 11:56 | PT.PROG ---
Progress Note Progress Note: S. Patient stated that she is feeling a little better than yesterday, however is very concerned about her knee. O. Patient ambulated 90 feet in the preciado and back to her room and returned to her chair where she was left in her chair with alarm and call light. A. Patient tolerated ambulation fair, she is very concerned about the pain in her left knee. She would continue to benefit from skilled therapy to increase strength and mobility at this time. P. Continue POC.
--- NOTE | 2019-03-24 16:11 | PT.PROG ---
Progress Note Progress Note: S. Patient stated that she is feeling a little better than yesterday. O. Patient had K-tape to her knee to assist with knee pain and stability. Patient then ambulated 125 feet in the preciado and back to her room and returned to her chair where she was left in her chair with alarm and call light. A. Patient tolerated ambulation fair, she required min assist with sit to stand transfers and ambulation. She would continue to benefit from skilled therapy to increase strength and mobility at this time. P. Continue POC.
[2019-03-24] MEDS: AMITRIPTYLINE 25 MG TABLET PO SCH (21:30)
[2019-03-24] MEDS: ATORVASTATIN 40 MG TABLET PO SCH (21:31)
[2019-03-25] MEDS: oxyCODONE-ACETAMINOPHEN 5-325 TAB PO PRN ×5 (02:30→20:05)
[2019-03-25] MEDS: OMEPRAZOLE 40 MG CAPSULE PO SCH (07:04)
[2019-03-25] MEDS: HYDROCHLOROTHIAZIDE 25 MG TABLET PO SCH (07:04)
[2019-03-25] MEDS: CITALOPRAM 20 MG TABLET PO SCH (08:52)
[2019-03-25] MEDS: PREGABALIN 100 MG CAPSULE PO SCH ×2 (08:53→20:05)
[2019-03-25] MEDS: metFORMIN 500 MG TABLET PO SCH ×2 (08:53→20:05)
[2019-03-25] MEDS: Topiramate Tab 50 MG TAB PO SCH ×2 (08:53→20:06)
[2019-03-25] MEDS: LOSARTAN 25 MG TABLET PO SCH (08:53)
[2019-03-25] MEDS: DIVALPROEX SODIUM 250 MG TABLET PO SCH ×2 (08:53→20:05)
--- NOTE | 2019-03-25 11:20 | PT.PROG ---
Progress Note Progress Note: S: Pt seated EOB when therapy arrived. Pt states that she was feeling alright this morning, but was a little tired. She reports that her L LE is still giving her some problems. O: Sitting: Pt able to sit EOB with contact guard x2. O2 was removed and pt put on lumbar back brace with contact guard x2 for safety. While putting on the brace, pt O2 sats dropped into the upper 80s. Pt cued to take deep breaths in through the nose and out through the mouth. Pt able to bring her sats back up to 92. Standing: Pt was able to sit to stand with contact guard of x2 with LOT PORTER x2 on walker. She assumed a good standing balance. Ambulation: Pt ambulated 100 ft with contact guard x2 and LOT PORTER x2 on walker. Pt required frequent standing breaks to re-gain her breath. Ambulation was interrupted by pts need to use the bathroom. Toileting: Pt able to get on and off toilet with contact guard x1 for safety. Stairs: Pt ambulated 3 stairs using bilateral handrails with min assist x2. A: Pt not appropriate for discharge at this time due to L LE weakness and safety concerns. PT talked to nursing staff and pt about getting the pt up and walking throughout the day in order to work towards discharge. P: Plan to see pt in the morning to try ambulating and stairs again in order to re- determine if appropriate for discharge.
--- NOTE | 2019-03-25 13:40 | NEURO.PROG ---
Subjective Post Op Day: 3 Pain Management: PO Harris Catheter: No Flatus: Yes Diet: Regular Ambulating: Yes Additional Details: POD #3, s/p L4-[address] Lucero Doing well. Wearing brace while up and ambulating well other than some instability about the left knee which is still swollen some. Pain is tolerable on PO meds. Denies chest pain, shortness of breath, calf pain, dizziness, nause a or vomiting. No BM yet, urinating ok. Does have some issues with keeping her oxygen up when not wearing nasal cannula; currently on 3 liters. Wears a CPAP at home and denies feeling short of breath even without the oxygen on. Does not normally wear daytime oxygen. Planning on going home tomorrow she thinks if cleared by PT. Date of Service: 03/25/19 Time of Service: 13:34 Objective : Data - Labs CBC and BMP: 03/23/19 07:00 03/23/19 07:00 - Vital Signs Vital Signs and I&O: Vital Signs - Last Taken Temperature 97.2 F 03/25/19 12:57 Pulse Rate 77 03/25/19 12:58 Respiratory Rate 18 03/25/19 12:57 Blood Pressure 116/52 03/25/19 12:57 Pulse Ox 92 03/25/19 12:58 Intake and Output (24hr x 4 totals) 03/23/19 03/24/19 03/25/19 03/26/19 05:59 05:59 05:59 05:59 Intake Total 3110 / 3110 1090 / 1090 1100 / 1100 990 / 990 Output Total 770 / 770 1115 / 1115 1740 / 1740 375 / 375 Balance 2340 / 2340 -25 / -25 -640 / -640 615 / 615 Objective : Exam - General General Appearance: No Acute Distress, Cooperative - Head Head Exam: Normal Inspection, Normocephalic, Atraumatic - Eye Eye Exam: Normal Appearance, PERRL, EOMI - Neck Neck Exam: Normal Inspection, Full ROM - Respiratory Respiratory Exam: Breathing Non Labored - GI/Abdominal GI/Abdominal Exam: Non Distended, Soft - Extremities Extremities Exam: Normal Inspection, Normal Capillary Refill, Joint Swelling (Left knee), Negative Ava's sign, Dosalis Pedis Pulses - Stong & Regular Additional Extremities Exam Details: Motor exam reveals good strength in the bilateral lower extremities without focal deficit. Sensory exam grossly intact. Savage hose in place. Kinesiotaping left knee with ice to the knee. - Back Back Exam: Normal Inspection, Full ROM, No CVA Tenderness Additional Back Exam Details: Dressing clean, dry and intact. Drain previously removed. No erythema. - Neurological Neurological Exam: Alert, Oriented x 3, Reflexes Normal, No Facial Droop, Moves All Extremities Equally - Psychiatric Psychiatric Exam: Normal Affect, Normal Mood - Integumentary Integumentary Exam: Normal Color, Warm, Dry, Intact Assessment and Plan - Assessment / Plan Additional Assessment/Plan Details: POD#3 S/p L4-[address] Lucero, doing well. Continue brace while up. Add Colace and prune juice if needed. Add left knee brace from PT per February,. Plan on Home Oxygen and f/u with PCP Will see in a.m. and plan on discharge home if cleared. D/w Dr. Lucero.
[2019-03-25] MEDS: AMITRIPTYLINE 25 MG TABLET PO SCH (20:05)
[2019-03-25] MEDS: ATORVASTATIN 40 MG TABLET PO SCH (20:05)
[2019-03-25] MEDS: DOCUSATE 100 MG CAPSULE PO SCH (20:06)
[2019-03-26] MEDS: oxyCODONE-ACETAMINOPHEN 5-325 TAB PO PRN ×3 (02:28→07:30)
[2019-03-26] MEDS: HYDROCHLOROTHIAZIDE 25 MG TABLET PO SCH (07:34)
[2019-03-26] MEDS: OMEPRAZOLE 40 MG CAPSULE PO SCH (07:34)
[2019-03-26] MEDS: LOSARTAN 25 MG TABLET PO SCH (08:46)
[2019-03-26] MEDS: PREGABALIN 100 MG CAPSULE PO SCH (08:46)
[2019-03-26] MEDS: Topiramate Tab 50 MG TAB PO SCH (08:46)
[2019-03-26] MEDS: CITALOPRAM 20 MG TABLET PO SCH (08:46)
[2019-03-26] MEDS: DIVALPROEX SODIUM 250 MG TABLET PO SCH ×2 (08:47→20:52)
[2019-03-26] MEDS: metFORMIN 500 MG TABLET PO SCH (08:47)
[2019-03-26] MEDS: DOCUSATE 100 MG CAPSULE PO SCH ×2 (08:47→20:52)
--- NOTE | 2019-03-26 11:30 | PT.PROG ---
Progress Note Progress Note: S: Pt sitting in bed sidechair when therapy arrived today. Pt seemed disoriented today. Pt took a longer time to answer question, perform transfers and ambulate. O: Pt was fitted for a knee brace to help add stability around the joint. Sit to Stand Transfer: PT applied gait belt. Pt put on back brace and performed a sit to stand transfer with min assist x2 with WASHTUB WORKER HELPER x2 on walker. Standing: Pts O2 dropped slightly when standing and was cued to take deep breaths, in through the nose and out through the mouth. Pt able to assume good standing balance after 20 seconds. Ambualtion: Pt ambulated 50 feet to the stair well with contact guard x2 for safety and WASHTUB WORKER HELPER from walker. Pt required frequent breaks and often forgot where we were going. Stairs: Pt ascended/descended 3 stairs with min assist x2 with WASHTUB WORKER HELPER on bilateral handrail. Toilet Transfers: Pt able to get on/off toilet with min assist x1. Education: Pt and educated on how to take off the knee brace. Pt demonstrated understanding by helping PT don and doff the brace. A: Pt is disoriented today and is unsafe for discharge. Pt had decreased ambulation speed and required more breaks today than usual. She will benefit skill therapy in order to increase her strength and endurance so that she is able to return home safely. P: Plan to see pt again tomorrow for more ambulation and stair training. Want to progress pt toward discharge.
[2019-03-26] MEDS ORDERED: Hold Metformin-See Instruction 1 EACH MIS PRN (11:31)
--- NOTE | 2019-03-26 11:39 | CONSULT ---
Consult Note - Consult Reason for Consult: Other Requesting Physician: Maurilio THORNTON Primary Care Provider: Ally Stern MD - History of Present Illness History of Present Illness: Is a very nice 64-year-old female with status post the lumbar surgery with fusion. Was asked by the nurse to consult on Maurilio Andrea's request for confusion hypoxia and somnolence. Family states that she is usually not the sleepy she only wears CPAP at night. Patient denies chest pain nausea or vomiting she does appear very sleepy her speech is very slow but moves all 4 extremities as we were talking she dropped to around 75 on her pulse ox Past Medical History Medical History: Fibromyalgia, diabetes, hypertension, bradycardia, sleep apnea, diabetic neuropathy, obesity, depression Surgical History: Status post bilateral cataract extraction (Acute). History of esophagogastroduodenoscopy. History of gastrointestinal surgery. History of gynecological procedure. History of musculoskeletal system surgery (~2015). History of unilateral oophorectomy. Incisional hernia repair. Rt achilles tendon repair (03/20/14). Status post appendectomy. Status post cholecy stectomy. Status post colonoscopy. Status post hysterectomy. Status post knee surgery. Status post tubal ligation Family History: Reviewed an Not Pertinent (Family history is negative for any major medical problems.) Pertinent Family History: No premature coronary artery disease Tobacco Use: Never Smoker In the Past 12 Months, Have Used or Abuse Any of the Following Substance: None Review of Systems - Review of Systems All Systems: Reviewed & No Additional Complaints Except as Stated ROS Unobtainable: Due to Mental Status - Cardiovascular Cardiovascular: DENIES: Negative System Review, Chest Pain, Edema, Syncope, Palpitations, Orthopnea, Paroxysmal Nocturnal Dyspnea, Other, See HPI Medication / Allergies Home Medications: Home Medications Medication Instructions Recorded Confirmed Oxygen (O2) 2 unit INH HS #2 unit 01/17/14 03/21/19 amlodipine 10 mg tablet 10 mg PO QDAY #90 tab 03/14/19 03/21/19 atorvastatin 40 mg tablet 40 mg PO QDAY #90 tab 03/14/19 03/21/19 citalopram 40 mg tablet 40 mg PO QDAY #90 tab 03/14/19 03/21/19 divalproex 500 mg tablet,delayed 500 mg PO BID #180 tab 03/14/19 03/21/19 release hydrochlorothiazide 25 mg tablet 25 mg PO QDAY #90 tab 03/14/19 03/21/19 losartan 25 mg tablet 25 mg PO QDAY #90 tab 03/14/19 03/21/19 metformin 500 mg tablet 1,000 mg PO BID #360 tab 03/14/19 03/21/19 omeprazole 40 mg capsule,delayed 40 mg PO QDAY #90 cap 03/14/19 03/21/19 release pregabalin 100 mg capsule 100 mg PO BID #180 tab-cap 03/14/19 03/21/19 topiramate 25 mg tablet 50 mg PO Q12H #360 tab 03/14/19 03/21/19 amitriptyline 25 mg tablet 25 mg PO QHS #90 tab 03/17/19 03/21/19 Allergies/Adverse Reactions: Allergies Allergy/AdvReac Type Severity Reaction Status Date / Time morphine AdvReac DYSPHORIA Verified 03/26/19 06:47 Exam - Vitals Vital Signs: Vital Signs Temperature 98.1 F Temperature Source Temporal Artery Scan Pulse Rate [Pulse Oximeter] 67 Pulse Rate [Right Index Finger 77 ] Pulse Rate 77 Respiratory Rate 17 Blood Pressure [Left Arm] 109/57 Blood Pressure [Right Arm] 109/62 Blood Pressure 121/73 Pulse Ox [Right Index Finger] 95 Pulse Ox 97 Oxygen Flow Rate [Right Index 3 Finger] Oxygen Flow Rate 3 Oxygen Delivery Method [Right Nasal Cannula Index Finger] Oxygen Delivery Method Nasal Cannula Height 5 ft 11 in Weight 267 lb 6.4 oz - General General Appearance: No Acute Distress - Head Head Exam: Normal Inspection, Normocephalic, Atraumatic - Eye Eye Exam: POSITIVE: Normal Appearance, PERRL, EOMI, No Scleral Icterus - Respiratory Respiratory Exam: POSITIVE: Clear to Auscultation - Bilaterally, Decreased Breath Sounds - Cardiovascular Cardiovascular Exam: POSITIVE: RRR, No Murmur, No Clicks, No Gallops, No Rubs, PMI Non-Displaced - GI/Abdominal GI/Abdominal Exam: POSITIVE: Normal Bowel Sounds, Non Tender, Non Distended, Soft, No Masses, No Hepatomegaly, No Splenomegaly, No Organomegaly - Extremities Extremities Exam: POSITIVE: No Clubbing Present, No Edema Present, No Cyanosis Present Results - Labs CBC and BMP: 03/23/19 07:00 03/23/19 07:00 Assessment and Plan - Patient Problems (1) Confusion Current Visit: Yes Status: Acute Comment: Francheska and rdidhi Harris be multifactorial with the narcotics family states that she had narcotics in the past and did not do well with them she also is on Topamax which can cause insomnia or depression sleepiness somnolence and dizziness and fatigue we will stop this medication as well as she is also on Lyrica which can cause basically the same things on the adverse reactions I will keep her on her Depakote since I don't know why she is taking this we will try to find out from the family but at present time I will get a CTA of her chest rule out PE or pneumonia she did have a left shift on her labs on the these will be repeated as well I believe her hypoxia and confusion is is from a multi- medication use Only she takes Depakote for seizures and Topamax and Lyrica for fibromyalgia. Code(s): R41.0 - Disorientation, unspecified (2) Hypoxia Current Visit: Yes Status: Acute Comment: CTA of the chest could be red depressed respiratory drive from na rcotics nevertheless she is postop from back surgery and we have to make sure there is no other pathology involved causing this Code(s): R09.02 - Hypoxemia
[2019-03-26 12:00] LABS: BASOPHILS # (AUTO) 0.02 10*3/UL; BASOPHILS % (AUTO) 0.2 % (0-1); EOSINOPHILS # (AUTO) 0.28 10*3/UL; EOSINOPHILS % (AUTO) 3.3 % (0-8); Hematocrit [HCT] 29.7 % (37.0-47.0); Hemoglobin [HGB] 9.5 g/dL (12.0-16.0); LYMPHOCYTES # (AUTO) 1.18 10*3/uL; MEAN CORPUSCULAR HEMOGLOBIN 30.4 PG (27-31); MEAN CORPUSCULAR VOLUME 94.9 FL (81-99); MEAN PLATELET VOLUME 10.8 FL (7.4-12.2); MONOCYTES # (AUTO) 1.09 10*3/UL (0.3-0.8); MONOCYTES % (AUTO) 12.8 % (5-15); NEUTROPHILS # (AUTO) 5.91 10*3/UL; NEUTROPHILS % (AUTO) 69.4 % (50-80); RED BLOOD COUNT 3.13 10^6/uL (4.20-5.40)
[2019-03-26] MEDS: Sodium Chloride 0.9% 1,000 ML IV SCH (12:00)
[2019-03-26 12:08] LABS: PLATELET MORPHOLOGY COMMENT NORMAL MORPHOLOGY (NORM); RBC MORPHOLOGY COMMENT NORMAL MORPHOLOGY (NORM); WBC MORPHOLOGY COMMENT NORMAL MORPHOLOGY (NORM)
[2019-03-26 12:09] LABS: BUN/CREATININE RATIO 17.69 (6-20); SERUM ALBUMIN 3.5 g/dL (3.5-4.8)
--- NOTE | 2019-03-26 14:35 | DI ---
AP /LATERAL CHEST, 03/26/2019 1:26 PM : Clinical History: Shortness of breath. Previous Exam: 03/14/2019 Soft Tissues: No acute soft tissue abnormality. Bones: Normal. Heart: There is cardiomegaly. The right heart border is more prominent than on the prior exam in spit e of the differences in the PA and AP projections and the azygos vein appears more prominent. There i s reversal of flow to the upper lobes with peribronchial and perivascular haziness. This pattern is m ore pronounced than on the prior exam. Lungs: No infiltrates. Effusion(s): A very small amount of fluid has developed in the minor fissure. Mediastinum: Normal mediastinum. Nodules: No pulmonary nodules. Readin. Worsening of chronic biventricular failure compared to the previous study of 03/14/2019. 2. No acute infiltrate or effusion present.
--- NOTE | 2019-03-26 15:42 | NEURO.PROG ---
Subjective Post Op Day: 4 Pain Management: PO Harris Catheter: No Diet: Regular Ambulating: Yes Additional Details: POD #4, s/p L4-[address] Lucero Patient having trouble with confusion today per nurse, PT and family. She is also very sleepy today. No changes in her meds but the confusion seemed worse to the nurse after her dose of percocet. Requested consult with hospitalist; Dr. Curz saw the patient and adjusted her medications as well as ordered CBC, CMP, CXR and CTA chest. THose are pending. Left knee feels more stable to patient with the knee brace from PT. Still on 3 liters O2 NC with hypoxia if she is off or decreases it. Denies chest pain, shortness of breath. Does state that she feels weak and tired; daughter states she repeating sentences as well. No history of stroke; patient states all extremities seem to be working well without focal weakness. No facial droop or slurred speech appreciated by patient's family. Objective : Data - Labs CBC and BMP: 03/26/19 11:50 03/26/19 11:50 - Vital Signs Vital Signs and I&O: Vital Signs - Last Taken Temperature 98.1 F 03/26/19 11:09 Pulse Rate 78 03/26/19 15:05 Respiratory Rate 17 03/26/19 11:09 Blood Pressure 109/62 03/26/19 11:09 Pulse Ox 99 03/26/19 15:05 Intake and Output (24hr x 4 totals) 03/24/19 03/25/19 03/26/19 03/27/19 05:59 05:59 05:59 05:59 Intake Total 1090 / 1090 1100 / 1100 2490 / 2490 1010 / 1010 Output Total 1115 / 1115 1740 / 1740 2175 / 2175 Balance -25 / -25 -640 / -640 315 / 315 1010 / 1010 Objective : Exam - General General Appearance: Cooperative Additional General Exam Details: Tired; had to wake her up to examine her. Cooperative. - Head Head Exam: Normal Inspection, Normocephalic - Eye Eye Exam: Normal Appearance, EOMI - Neck Neck Exam: Normal Inspection - Respiratory Respiratory Exam: Breathing Non Labored - Extremities Extremities Exam: Normal Inspection, Normal Capillary Refill, No Edema Present, Negative Ava's sign, Dosalis Pedis Pulses - Stong & Regular Additional Extremities Exam Details: Motor examine shows good strength in the bilateral upper and lower extremities. - Back Back Exam: Normal Inspection - Neurological Neurological Exam: Oriented x 3, CN II-XII Intact, No Facial Droop, Speech Intact / Clear, Moves All Extremities Equally - Integumentary Integumentary Exam: Normal Color, Warm, Dry, Intact Assessment and Plan - Patient Problems (1) Confusion Current Visit: Yes Status: Acute Code(s): R41.0 - Disorientation, unspecified (2) Hypoxia Current Visit: Yes Status: Acute Code(s): R09.02 - Hypoxemia - Assessment / Plan Additional Assessment/Plan Details: POD#4, s/p L4-[address] Lucero New onset confustion and continued hypoxia. Concern about medications including percocet causing her confusion and tiredness but needs further work up. PLAN: D/w Dr. Lucero: Consult and orders per Dr. Cruz to work up hypoxia and confusion - appreciate his help. Hold Percocet. Family states she's been on [place] in the past without troubles so may be an option rather than Percocet but hold all narcotics for now. DC Flexeril as well. Continue brace and activity restrictions. Not cleared for discharge. Will see tomorrow and see results of studies. Continue current orders otherwise.
[2019-03-26] MEDS: ATORVASTATIN 40 MG TABLET PO SCH (20:51)
[2019-03-26] MEDS: AMITRIPTYLINE 25 MG TABLET PO SCH (20:52)
[2019-03-27] MEDS: Sodium Chloride 0.9% 1,000 ML IV SCH (03:09)
[2019-03-27] MEDS: HYDROCHLOROTHIAZIDE 25 MG TABLET PO SCH (07:06)
[2019-03-27] MEDS: OMEPRAZOLE 40 MG CAPSULE PO SCH (07:07)
[2019-03-27] MEDS: DIVALPROEX SODIUM 250 MG TABLET PO SCH (08:22)
[2019-03-27] MEDS: CITALOPRAM 20 MG TABLET PO SCH (08:22)
[2019-03-27] MEDS: LOSARTAN 25 MG TABLET PO SCH (08:23)
[2019-03-27] MEDS: DOCUSATE 100 MG CAPSULE PO SCH (08:23)
[2019-03-27] MEDS ORDERED: Topiramate Tab 50 MG TAB PO SCH (09:00)
--- NOTE | 2019-03-27 10:40 | OT.PROG ---
Progress Note Progress Note: S: pt stated that she was in pain, 7/10 on pain level scale. pt reports her pain is high from dx of Fibromyalgia. O: tx consisted of seated UE dressing of bra and shirt with MIN A for bra donning, LE dressing of underwear and pants with MOD A and use of older adult social work specialist. pt completed STS x1 with MIN A for standing to complete donning of LE pants. A: pt needed assistance with donning LE due to the tightness of the clothing and attempting to slid clothing over the antislip socks. pt seemed tired but continued with therapy. pt is motivated to go home.
[2019-03-27 11:12] VITALS: RESP 19
--- NOTE | 2019-03-27 12:08 | PT.PROG ---
Progress Note Progress Note: S. Patient stated that she is feeling better than yesterday. She feels that she is ready to go home. O. Patient ambulated 80 feet to the therapy gym where she had heat to her back and knee then performed, heel slides, quad sets, ankle pumps, short arc quads, sit to stands all x 10. Patient used the nu-step x 10 minutes, then ambulated 80 feet to the wheelchair and was returned to her room. where she was left in her chair with alarm and call light. A. Patient tolerated therapy well, she was able to perform all exercises at this time. Patient would benefit from Outpatient therapy at this time. P. Patient has met all goals.
[2019-03-27 12:42] LABS: BUN/CREATININE RATIO 18.18 (6-20)
--- NOTE | 2019-03-27 14:44 | NEURO.PROG ---
Subjective Post Op Day: 5 Pain Management: PO Harris Catheter: No Flatus: Yes Diet: Regular Ambulating: Yes Additional Details: POD#5, s/p L4-[address] Lucero Patient doing much better today. She denies feeling tired or short of breath. She is off oxygen and sats upper 90's after stopping Percocet yesterday. Ambulated well with PT and they cleared her to go home from their standpoint. Leg pain and back pain are both improved from before surgery. Denies weakness or change in bowel/bladder. Denies fevers, chills, SOB, CP, calf pain. Ready to go home. Objective : Data - Labs CBC and BMP: 03/26/19 11:50 03/27/19 12:30 - Vital Signs Vital Signs and I&O: Vital Signs - Last Taken Temperature 97.8 F 03/27/19 11:12 Pulse Rate 76 03/27/19 11:12 Respiratory Rate 03/27/19 11:12 Blood Pressure 126/63 03/27/19 11:12 Pulse Ox 95 03/27/19 12:12 Intake and Output (24hr x 4 totals) 03/25/19 03/26/19 03/27/19 03/28/19 05:59 05:59 05:59 05:59 Intake Total 1100 / 1100 2490 / 2490 2592 / 2592 355 / 355 Output Total 1740 / 1740 2175 / 2175 2650 / 2650 1125 / 1125 Balance -640 / -640 315 / 315 -58 / -58 -770 / -770 Objective : Exam - General General Appearance: No Acute Distress, Cooperative - Head Head Exam: Normal Inspection, Normocephalic, Atraumatic - Eye Eye Exam: Normal Appearance, EOMI - Neck Neck Exam: Normal Inspection - Respiratory Respiratory Exam: Breathing Non Labored - Extremities Extremities Exam: Normal Inspection, Normal Capillary Refill, No Edema Present (MARIAMA Hose), Joint Swelling (Left knee with brace on), Negative Ava's sign Additional Extremities Exam Details: Motor exam shows full strength bilateral LE. Reflexes intact knees, ankles. - Neurological Neurological Exam: Alert, Oriented x 3, Reflexes Normal, No Facial Droop, Speech Intact / Clear, Moves All Extremities Equally - Psychiatric Psychiatric Exam: Normal Affect, Normal Mood - Integumentary Integumentary Exam: Normal Color, Warm, Dry, Intact Assessment and Plan - Patient Problems (1) Status post lumbar spinal fusion Current Visit: Yes Status: Acute Code(s): Z98.1 - Arthrodesis status (2) Confusion Current Visit: Yes Status: Acute Code(s): R41.0 - Disorientation, unspecified (3) Hypoxia Current Visit: Yes Status: Acute Code(s): R09.02 - Hypoxemia - Assessment / Plan Additional Assessment/Plan Details: POD#5, s/p L4-[address] Lucero Doing well. Ready for DC home if cleared by Dr. Damon. Cleared by PT PLAN: Ok to discharge home from Neuro standpoint. Dr. Damon to see her and decide on discharge when medically cleared. F/u per discharge instructions with me next week, sooner PRN.
--- NOTE | 2019-03-27 15:51 | OTI REPORT ---
Thank you for the referral of Elvira Kowalski. She was seen on 03/24/19 for an occupational therapy inpatient evaluation status post lumbar fusion. SUBJECTIVE: The patient is a 64-year-old female who underwent a lumbar fusion. The patient's ability to answer questions was slightly questionable as she was on quite a bit of pain medication. The patient does live at home with her . Her was present during the session. She reports that she was struggling a little bit with dressing self prior to admission because of her back pain. PAST MEDICAL HISTORY: Past medical history can be found in the patient's medical record. OBJECTIVE FINDINGS: General observations: The patient was in and out of alertness. Activities of daily living: The patient reports she has a high rise toilet seat and a shower chair. The patient was issued a sdet and we practiced doffing socks and donning lower extremity clothing. We practiced using sock aide to don socks. The patient did not want a bath sponge as she has one at home. The patient's was present to go over adaptive equipment. Transfers: The patient requires min assist to come from sit to stand. Her pain level increased to a 6/10 on the verbal analog scale (0=no pain, 10=worst pain) with sit to stands and functional transfers. Cognition: The patient seemed to be a little confused secondary to being on pain medication. ASSESSMENT: Problem List: Decreased ability to complete ADLs Decreased ability to complete functional transfers Short-Term Goals: To be met by discharge from inpatient: Patient will be able to dress lower extremities with modified independence. Patient will be able to complete functional transfers with stand by assist. Patient will be able to complete a toilet transfer with stand by assist. Long-Term Goals: To be met following discharge from inpatient: Patient will return home demonstrating safety and independence while following her precautions of no bending/lifting/twisting for all functional transfers. TREATMENT PLAN: Patient will be seen B.I.D during the week and one time per day over the weekend as an inpatient to address the above goals and objectives. INITIAL TREATMENT: Treatment today consisted of the initial evaluation activities only. ARIELLA
[2019-03-27] MEDS ORDERED: FUROSEMIDE 10 MG/1 ML - 2 ML VIAL IVP ONE (16:23)
--- NOTE | 2019-03-27 16:28 | DI ---
CT ANGIOGRAM OF THE CHEST, 03/27/2019 1:10 PM : Clinical History: Postoperative hypoxia. Previous Exam: A noncontrast scan from 04/29/2015. Technique: Scans from base of neck to lung bases with IV contrast. Bolus tracking protocol was not us ed for timing the injection. Non-MIPS and MIPS sagittal/coronal images generated. IV Contrast: 65 mL of Ultravist 300. Comment: This patient's eGFR was 50 mL/s. After discussion with the attending hospitalist, because of the patient's grave condition in terms of her hypoxia and the need to establish a cause of that cond ition, plus the fact that her eGFR may be altered because of her more obesity, it was decided to proc eed with IV contrast. Base of Neck: Normal. Nodes: Normal axillary, supraclavicular, mediastinal, and hilar lymph nodes. Heart: Cardiomegaly. No pericardial effusion. All 4 chambers have increased in size. Calcifications a re present in the LAD and left coronary arteries. The right brachiocephalic vein and superior vena ca va and inferior vena cava are all fully distended and larger than on the previous study. Aorta: Normal thoracic aorta. No aneurysm or dissection. Calcification is visualized in the proximal ascending aorta but not in the aortic valve. Pulmonary Arteries: No pulmonary emboli are identified. There is very severe pulmonary arterial hyper tension and this has progressed in severity since the previous exam. Lungs: No infiltrates. There are motion artifacts present but regardless, there are Mala A and Kerl ey B lines that were not present on the previous study. This would indicate there is left-sided CHF. Effusion(s): None. Nodules: None. Bony Structures: Normal visualized portions of ribs, sternum, scapulae, clavicles, and shoulders. Nor mal visualized portions of thoracic spine. Limited Upper Abdomen: Normal adrenal glands and spleen. Normal limited views of the pancreas. Hepato megaly with probable mild fatty infiltration of the liver. READIN. There is no evidence of pulmonary emboli or pulmonary embolism with infarction. There is markedly prominent pulmonary arterial hypertension that has progressed since the previous study from 2014. 2. There is cardiomegaly with four-chamber enlargement. The right heart has increased more than the left side and the right brachiocephalic vein and SVC and IVC are more prominent in caliber than the p revious study. The azygos vein is also dilated and these findings would suggest presence of right hea rt failure. The development of interstitial Mala A and Mala B lines would indicate there is also left-sided failure. 3. Hepatomegaly with probable mild fatty infiltration. 4. Coronary artery disease manifested by calcifications in the LAD and left circumflex artery.
[2019-03-27 16:34] VITALS: BP 128/65; TEMP 97.9
[2019-03-27 16:35] VITALS: O2SAT 91
--- NOTE | 2019-03-27 18:01 | DCSUMMARY ---
Hospitalization Summary Admit Date: 03/22/2019 Discharge Date: 03/27/19 Primary Diagnosis:: status post lumbar surgery, acute respiratory failure Hospital Course: This is a very pleasant 64-year-old female that was admitted on 03/22/2019 in the setting of lumbar surgery. Please see Dr. Lucero's notes regarding the procedure. Patient tolerated her surgery well and her postoperative recovery from a therapy standpoint was slightly delayed but overall she recovered well from a surgical standpoint. Medically however, she deteriorated and on 03/26/2019, the hospital service was involved because of persistent hypoxia postoperatively. She had chronic kidney disease, stage II, and it was difficult to get a CT scan to rule out pulmonary emboli as a cause of the persistent hypoxia and she did not have evidence of pneumonia. She clinically did not have evidence of congestive heart failure, although it was suspected that she might have underlying right heart failure based on her history of obstructive sleep apnea with CPAP dependence. She was hydrated, and a CT scan of the chest was able to be done, and it was negative for pulmonary emboli, however did reveal biventricular heart failure with curly B lines and findings consistent with congestive heart failure. I reviewed her record extensively. The patient had a negative heart catheterization in June 2015 with no evidence of coronary artery disease but has had grade 1 diastolic systolic dysfunction on echocardiograms dating back as recently as 2014. Her ejection fraction was read at 55% on echocardiogram although it was normal at 65-70% on her heart catheterization. CT scan of the chest to look for pulmonary emboli revealed biventricular failure and cardiomyopathy. I think this needs to be confirmed with echocardiogram although likely this is a nonischemic cardiomyopathy. The patient did not have any "blackout spells". I suspect these are related to undiagnosed seizures as the patient is responded very well to Depakote therapy for prevention of these spells. She had a negative EEG but a negative EEG does not rule out seizure disorder. Migraines were well controlled with Topamax. Lyrica has been used for neurogenic claudication but has also been used for fibromyalgia. I think it is a medication that could be reduced. It might help with hypoxia. Patient did not respond well to Lasix in the past but she was dehydrated in the setting of a recent heart catheterization and had prerenal azotemia and renal failure related to dehydration, medications, and heart catheterization with contrast. She recovered from that episode, but the patient's granddaughter is quite leery about the patient going on Lasix for management of congestive heart failure. She is on hydrochlorothiazide which I think the patient can safely resume at this point. Patient is also on losartan which I think could be increased in terms of dose. However, like the patient to hold off on doing this until her blood pressures can be reviewed with her primary physician at a later date. The patient's diabetes is well controlled and her last hemoglobin A1c was less than 6 and I think she can stop her metformin. I was able to find out that the patient had an aneurysm, albeit small and at low risk for rupture. 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 I told the patient to proceed with caution with any further surgeries because of potential shifts and blood pressure and/or fluid management based on this finding. I do not believe that this would necessarily preclude her as a candidate for surgery, but I think it should be viewed in the overall context of her health care. After extensive review of the records, and developing a plan for a repeat echocardiogram, and management of her sleep apnea with oxygen at 24/7 as she was hypoxic today on my examination at 87% on room air, I think the patient would be okay to go home with continued oxygen therapy, CPAP therapy at night, and weight loss to help improve her pulmonary hypertension and hypoxemia symptoms. He may benefit from pulmonary function tests later on down the road as a suspect she has an underlying restrictive lung disease. Today, no completes of chest pain, shortness breath, nausea or vomiting. Pain medication management for back surgery as per neurosurgery. Assessment and Plan: 1. As per discharge assessments noted 2. Disposition: Patient is discharged home. 3. Condition on discharge, stable and improved. 4. Diet: regular diet 5. Activities: As per neurosurgery and physical therapy 6. Follow-Up: 1. Primary physician in one week 2. Neurosurgery as recommended 7. Medications at the Time of Discharge: Home Medications Medication Instructions Recorded Confirmed amlodipine 10 mg tablet 10 mg PO QDAY #90 tab 03/14/19 03/21/19 atorvastatin 40 mg tablet 40 mg PO QDAY #90 tab 03/14/19 03/21/19 citalopram 40 mg tablet 40 mg PO QDAY #90 tab 03/14/19 03/21/19 divalproex 500 mg tablet,delayed 500 mg PO BID #180 tab 03/14/19 03/21/19 release hydrochlorothiazide 25 mg tablet 25 mg PO QDAY #90 tab 03/14/19 03/21/19 losartan 25 mg tablet 25 mg PO QDAY #90 tab 03/14/19 03/21/19 omeprazole 40 mg capsule,delayed 40 mg PO QDAY #90 cap 03/14/19 03/21/19 release pregabalin 100 mg capsule 100 mg PO BID #180 tab-cap 03/14/19 03/21/19 topiramate 25 mg tablet 50 mg PO Q12H #360 tab 03/14/19 03/21/19 amitriptyline 25 mg tablet 25 mg PO QHS #90 tab 03/17/19 03/21/19 8. Time, care, counseling and coordination of care for this discharge is greater than 30 minutes. Exam - Vitals Vital Signs: Vital Signs Temperature 97.9 F Temperature Source Temporal Artery Scan Pulse Rate [Pulse Oximeter] 79 Pulse Rate [Right Index Finger 87 ] Pulse Rate 77 Respiratory Rate 19 Blood Pressure [Left Arm] 128/65 Blood Pressure [Right Arm] 109/62 Blood Pressure 121/73 Pulse Ox [Right Index Finger] 91 Pulse Ox 90 Oxygen Flow Rate [Right Index 2 Finger] Oxygen Flow Rate 2 Oxygen Delivery Method [Right Room Air Index Finger] Oxygen Delivery Method Room Air Height 5 ft 11 in Weight 265 lb 3.2 oz - General General Appearance: No Acute Distress, Cooperative - Head Head Exam: Normal Inspection, Normocephalic, Atraumatic - Eye Eye Exam: POSITIVE: No Scleral Icterus - ENT ENT Exam: POSITIVE: Mucous Membranes Moist - Neck Neck Exam: JVP is not Raised - Respiratory Respiratory Exam: POSITIVE: Clear to Auscultation - Bilaterally, Breathing Non Labored - Cardiovascular Cardiovascular Exam: POSITIVE: RRR, No Murmur, No Clicks, No Gallops, No Rubs, No JVD - GI/Abdominal GI/Abdominal Exam: POSITIVE: Normal Bowel Sounds, Non Tender, Non Distended, Soft - Extremities Extremities Exam: POSITIVE: No Clubbing Present, No Cyanosis Present, +1 Edema - Neurological Neurological Exam: POSITIVE: Alert, Oriented x 3, No Facial Droop, Speech Intact / Clear, Moves All Extremities Equally - Psychiatric Psychiatric Exam: POSITIVE: Normal Affect, Normal Mood Data Peritnent Studies: 03/26/19 03/26/19 03/26/19 11:50 17:08 17:08 Sodium Potassium Chloride Carbon Dioxide Anion Gap BUN Creatinine Estimated GFR BUN/Creatinine Ratio Glucose 123 H Calculated Osmolality 296.0 H Calcium 8.7 Total Bilirubin 0.5 AST 27 ALT 26 Alkaline Phosphatase 52 Troponin I < 0.012 NT-Pro-B Natriuret Pep 560 H Total Protein 6.5 Albumin 3.5 Globulin 3.0 Albumin/Globulin Ratio 1.10 L 03/27/19 12:30 Sodium 141 Potassium 3.8 Chloride 104 Carbon Dioxide 24 Anion Gap 13 BUN 20 Creatinine 1.1 Estimated GFR 50 BUN/Creatinine Ratio 18.18 Glucose 121 H Calculated Osmolality 295.0 H Calcium 9.2 Total Bilirubin AST ALT Alkaline Phosphatase Troponin I NT-Pro-B Natriuret Pep Total Protein Albumin Globulin Albumin/Globulin Ratio 03/26/19 11:50 WBC 8.51 Hgb 9.5 L Hct 29.7 L Plt Count 203 Procedures: [address] [facility] [place] [address] PH: DD: [phone] FAX: [phone] ~DIAGNOSTIC IMAGING REPORT~ Patient: Elvira Kowalski : 1955 Sex: F Age: 64 Exam Name: CT CTA Chest Non-Coronary [facility] Exam Date: 03/27/19 Report # : [id number] CPT Code: 46001 EMR/MR #: [id number] Ordering: LORENZO SALAZAR Admiting: Demar Lucero MD. Primary: Ally Stern MD. Attending: Demar Lucero MD. ------ Signed CT ANGIOGRAM OF THE CHEST, 03/27/2019 1:10 PM : Clinical History: Postoperative hypoxia. Previous Exam: A noncontrast scan from 04/29/2015. Technique: Scans from base of neck to lung bases with IV contrast. Bolus tracking protocol was not used for timing the injection. Non-MIPS and MIPS sagittal/coronal images generated. IV Contrast: 65 mL of Ultravist 300. Comment: This patient's eGFR was 50 mL/s. After discussion with the attending hospitalist, because of the patient's grave condition in terms of her hypoxia and the need to establish a cause of that condition, plus the fact that her eGFR may be altered because of her more obesity, it was decided to proceed with IV contrast. Base of Neck: Normal. Nodes: Normal axillary, supraclavicular, mediastinal, and hilar lymph nodes. Heart: Cardiomegaly. No pericardial effusion. All 4 chambers have increased in size. Calcifications are present in the LAD and left coronary arteries. The right brachiocephalic vein and superior vena cava and inferior vena cava are all fully distended and larger than on the previous study. Aorta: Normal thoracic aorta. No aneurysm or dissection. Calcification is vis ualized in the proximal ascending aorta but not in the aortic valve. Pulmonary Arteries: No pulmonary emboli are identified. There is very severe pulmonary arterial hypertension and this has progressed in severity since the previous exam. Lungs: No infiltrates. There are motion artifacts present but regardless, there are Maal A and Mala B lines that were not present on the previous study. This would indicate there is left-sided CHF. Effusion(s): None. Nodules: None. Bony Structures: Normal visualized portions of ribs, sternum, scapulae, clavicles, and shoulders. Normal visualized portions of thoracic spine. Limited Upper Abdomen: Normal adrenal glands and spleen. Normal limited views of the pancreas. Hepatomegaly with probable mild fatty infiltration of the liver. READIN. There is no evidence of pulmonary emboli or pulmonary embolism with infarction. There is markedly prominent pulmonary arterial hypertension that has progressed since the previous study from 2014. 2. There is cardiomegaly with four-chamber enlargement. The right heart has increased more than the left side and the right brachiocephalic vein and SVC and IVC are more prominent in caliber than the previous study. The azygos vein is also dilated and these findings would suggest presence of right heart failure. The development of interstitial Mala A and Mala B lines would indicate there is also left-sided failure. 3. Hepatomegaly with probable mild fatty infiltration. 4. Coronary artery disease manifested by calcifications in the LAD and left circumflex artery. Dictated By: 03/27/19 1553 AMRITA LAGUNA MD. Signed By: 03/27/19 1628 AMRITA LAGUNA MD. Patient Problems - Patient Problem List (1) Status post lumbar surgery Current Visit: Yes Status: Acute Code(s): Z98.890 - Other specified postprocedural states Category: Surgical (2) Acute respiratory failure with hypoxemia Current Visit: Yes Status: Acute Code(s): J96.01 - Acute respiratory failure with hypoxia Category: Medical (3) Pulmonary arterial hypertension Current Visit: Yes Status: Acute Code(s): I27.21 - Secondary pulmonary arterial hypertension Category: Medical (4) Aneurysm of right superficial temporal artery Current Visit: Yes Status: Acute Code(s): I72.8 - Aneurysm of other specified arteries Category: Medical (5) Diabetes mellitus type II, controlled Current Visit: Yes Status: Acute Code(s): E11.9 - Type 2 diabetes mellitus without complications Qualifiers: Diabetes mellitus longterm insulin use: without longterm use Diabetes mellitus complication status: without complication Qualified Code(s): E11.9 - Type 2 diabetes mellitus without complications Category: Medical (6) Fibromyalgia Current Visit: Yes Status: Chronic Code(s): M79.7 - Fibromyalgia Category: Medical (7) Blackout spell Current Visit: Yes Status: Chronic Code(s): R55 - Syncope and collapse Category: Medical (8) Migraine Current Visit: Yes Status: Chronic Code(s): G43.909 - Migraine, unspecified, not intractable, without status migrainosus Qualifiers: Migraine type: unspecified Status migrainosus presence: without status migrainosus Intractability: not intractable Qualified Code(s): G43.909 - Migraine, unspecified, not intractable, without status migrainosus Category: Medical (9) Mixed hyperlipidemia Current Visit: Yes Status: Chronic Onset Date: 06/09/16 Code(s): E78.2 - Mixed hyperlipidemia Category: Medical (10) Obstructive sleep apnea syndrome Current Visit: Yes Status: Chronic Category: Medical
[2019-03-27] MEDS ORDERED: PREGABALIN 75 MG CAPSULE PO SCH (21:00)
[2019-03-29] MEDS ORDERED: metFORMIN 500 MG TABLET PO SCH (21:00)
== END 2019-03-27 18:50 | disposition home or self-care (01) | DRG 460 ==
LOC: OPS 11:49 → MED/SURG 20:29
PROVIDERS: ADMIT Neurological Surgery; ATTEND Neurological Surgery

== ENCOUNTER 2019-08-31 07:57 | Inpatient (IN) ==
[~2019-08-31 07:57] MED LIST changes: -BACITRACIN 0.9 GM PACKET OINT TOPICAL ONE; -BACITRACIN 50,000 UNIT VIAL IRRIG ONE; -Sodium Chloride 0.9% 250 ML ONE; -Sodium Chloride 0.9% vial 10 ML ONE; -THROMBIN (BOVINE) 20,000 UNIT KIT TOPICAL ONE; -Vancomycin Inj 1gm vial ONE; +Vancomycin-PHA to Dose IV PRN
[2019-08-31] MEDS ORDERED: Sodium Chloride 0.9% vial 10 ML ONE (09:04)
[2019-08-31] MEDS ORDERED: BACITRACIN 50,000 UNIT VIAL IRRIG ONE (09:05)
[2019-08-31] MEDS ORDERED: THROMBIN (BOVINE) 20,000 UNIT KIT TOPICAL ONE (09:05)
[2019-08-31] MEDS ORDERED: fentaNYL Inj 100 MCG/2 ML VIAL ONE (10:10)
[2019-08-31] MEDS ORDERED: MIDAZOLAM 5 MG/1 ML ONE (10:10)
[2019-08-31] MEDS ORDERED: PROPOFOL 10 MG/1 ML (200 MG/20 ML) VIAL IV ONE ×2 (10:12→11:44)
[2019-08-31] MEDS ORDERED: KETAMINE 100 MG/1 ML - 5 ML ONE (10:12)
[2019-08-31] MEDS ORDERED: Sodium Chloride 0.9% 250 ML ONE (10:16)
[2019-08-31] MEDS ORDERED: REMIFENTANIL 1 MG/1 ML IV ONE (10:16)
[2019-08-31] MEDS ORDERED: REMIFENTANIL HCL 2 MG VIAL IV ONE (10:16)
[2019-08-31] MEDS ORDERED: Propofol 1,000 MG/100 ML VIAL IV ONE ×2 (10:19→12:55)
[2019-08-31 10:58] LABS: BILIRUBIN,URINE NEGATIVE (NEG); CLARITY,URINE CLEAR (CLEAR); COLOR,URINE YELLOW (Y); GLUCOSE, URINE (UA) NEGATIVE (NEG); OCCULT BLOOD,URINE NEGATIVE (NEG); PH,URINE 6.5 (5.0-8.5); PROTEIN,URINE NEGATIVE (NEG); UROBILINOGEN,URINE 0.2 EU/dL (0.2)
[2019-08-31 10:59] LABS: URINE SAMPLE TYPE CLEAN CATCH URINE
[2019-08-31] MEDS ORDERED: PHENYLEPHRINE 10,000 MCG/1 ML VIAL ONE (11:16)
[2019-08-31] MEDS ORDERED: DIAZEPAM 10 MG/2 ML (5 MG/1 ML) CARPUJECT ONE (14:10)
[2019-08-31] MEDS ORDERED: DIAZEPAM 10 MG/2 ML (5 MG/1 ML) CARPUJECT IVP ONE (14:11)
[2019-08-31] MEDS ORDERED: fentaNYL Inj 100 MCG/2 ML VIAL IVP PRN (14:41)
[2019-08-31] MEDS ORDERED: ATROPINE SULFATE 0.4 MG/1 ML VIAL IVP PRN (14:41)
[2019-08-31] MEDS ORDERED: Prochlorperazine Edisylate Inj 10mg/2ml vial IVP PRN (14:41)
[2019-08-31] MEDS ORDERED: LIDOCAINE W/ SODIUM BICARB 0.5 ML SYR SUBD PRN (14:41)
[2019-08-31] MEDS ORDERED: ONDANSETRON 4 MG/2 ML VIAL IVP PRN ×2 (14:41→17:08)
[2019-08-31] MEDS ORDERED: HYDROmorphone 2 MG/1 ML ONE (14:42)
[2019-08-31] MEDS ORDERED: Lactated Ringers 1,000 ML PRIMARY IV SCH (14:45)
[2019-08-31] MEDS: HYDROmorphone 2 MG/1 ML IVP PRN ×2 (14:47→15:03)
[2019-08-31] MEDS ORDERED: LABETALOL 20 MG/4 ML (5 MG/1 ML) SYRINGE IVP PRN (17:08)
[2019-08-31] MEDS ORDERED: ACETAMINOPHEN 325 MG TABLET PO PRN (17:08)
[2019-08-31] MEDS ORDERED: oxyCODONE-ACETAMINOPHEN 5-325 TAB PO PRN (17:08)
[2019-08-31] MEDS ORDERED: MORPHINE SULFATE 2 MG/1 ML IVP PRN (17:08)
[2019-08-31] MEDS ORDERED: DOCUSATE 100 MG CAPSULE PO PRN (17:08)
[2019-08-31] MEDS ORDERED: CALCIUM CARBONATE 500 MG (TUMS) CHEWABLE TABLET PO PRN (17:08)
[2019-08-31] MEDS ORDERED: HYDRALAZINE 20 MG/1 ML IVP PRN (17:08)
[2019-08-31] MEDS ORDERED: Ondansetron ODT Tab 4 MG TAB PO PRN (17:08)
[2019-08-31] MEDS ORDERED: POTASSIUM GLUCONATE 550 MG PO SCH (17:08)
[2019-08-31] MEDS ORDERED: Zolpidem Tab 5 MG TAB PO PRN (17:08)
[2019-08-31] MEDS: D5-1/2NS + 20mEq KCL 1,000 ML PRIMARY IV SCH (17:54)
[2019-08-31] MEDS: ceFAZolin Inj 1 GM in Sodium Chloride 0.9% 100 ML IV SCH (19:16)
[2019-08-31] MEDS ORDERED: DIAZEPAM 5 MG TABLET PO PRN (19:39)
[2019-08-31] MEDS: metFORMIN 500 MG TABLET PO SCH (20:44)
[2019-08-31] MEDS: ATORVASTATIN 40 MG TABLET PO SCH (20:45)
[2019-08-31] MEDS: HYDROcodone-APAP 5 MG -325 MG TABLET PO PRN (20:45)
[2019-08-31] MEDS: PREGABALIN 100 MG CAPSULE PO SCH (20:48)
[2019-09-01] MEDS: ceFAZolin Inj 1 GM in Sodium Chloride 0.9% 100 ML IV SCH ×3 (03:02→20:25)
[2019-09-01] MEDS: HYDROcodone-APAP 5 MG -325 MG TABLET PO PRN ×5 (04:23→20:25)
[2019-09-01] MEDS: HYDROCHLOROTHIAZIDE 25 MG TABLET PO SCH (07:49)
[2019-09-01] MEDS ORDERED: TOPIRAMATE 300 MG PO SCH (09:00)
[2019-09-01] MEDS: Topiramate Tab 50 MG TAB PO SCH (09:34)
[2019-09-01] MEDS: OMEPRAZOLE 40 MG CAPSULE PO SCH (09:35)
[2019-09-01] MEDS: metFORMIN 500 MG TABLET PO SCH ×2 (09:35→21:37)
[2019-09-01] MEDS: LOSARTAN 25 MG TABLET PO SCH (09:35)
[2019-09-01] MEDS: CALCIUM CARBONATE 500 MG (TUMS) CHEWABLE TABLET PO SCH (09:35)
[2019-09-01] MEDS: CITALOPRAM 20 MG TABLET PO SCH (09:35)
[2019-09-01] MEDS: PREGABALIN 100 MG CAPSULE PO SCH ×2 (09:35→21:37)
[2019-09-01] MEDS: D5-1/2NS + 20mEq KCL 1,000 ML PRIMARY IV SCH ×2 (14:59→23:48)
[2019-09-01] MEDS ORDERED: Topiramate Tab 50 MG TAB PO SCH (21:00)
[2019-09-01] MEDS: ATORVASTATIN 40 MG TABLET PO SCH (21:37)
[2019-09-02] MEDS: HYDROcodone-APAP 5 MG -325 MG TABLET PO PRN ×2 (00:28→08:00)
[2019-09-02] MEDS: ceFAZolin Inj 1 GM in Sodium Chloride 0.9% 100 ML IV SCH ×2 (03:36→12:35)
[2019-09-02] MEDS: OMEPRAZOLE 40 MG CAPSULE PO SCH (07:59)
[2019-09-02] MEDS: LOSARTAN 25 MG TABLET PO SCH (07:59)
[2019-09-02] MEDS: HYDROCHLOROTHIAZIDE 25 MG TABLET PO SCH (08:00)
[2019-09-02] MEDS: PREGABALIN 100 MG CAPSULE PO SCH (08:01)
[2019-09-02] MEDS: Topiramate Tab 50 MG TAB PO SCH (08:01)
[2019-09-02] MEDS: CALCIUM CARBONATE 500 MG (TUMS) CHEWABLE TABLET PO SCH (08:01)
[2019-09-02] MEDS: CITALOPRAM 20 MG TABLET PO SCH (08:01)
[2019-09-02] MEDS: D5-1/2NS + 20mEq KCL 1,000 ML PRIMARY IV SCH (09:33)
[2019-09-02] MEDS ORDERED: Sodium Chloride 0.9% 100 ML IV ONE (10:00)
[2019-09-02] MEDS: metFORMIN 500 MG TABLET PO SCH (10:39)
[2019-09-02 12:48] VITALS: BP 136/70; RESP 24; TEMP 97.4
[2019-09-02 15:42] VITALS: O2SAT 95
== END 2019-09-02 16:17 | disposition home or self-care (01) | DRG 473 ==
LOC: OPS 07:57 → MED/SURG 16:46
PROVIDERS: ADMIT Neurological Surgery; ATTEND Neurological Surgery